=== PATIENT | female | born 1960 | race African-American/Black ===

== ENCOUNTER 2016-08-17 21:58 | Inpatient (IN) | payer MEDICARE, MEDICAID ==
[~2016-08-17] VITALS: Ht 165.1 cm; Wt 109.8 kg
[2016-08-17] MEDS ORDERED: NALOXONE 0.4 MG/ML VIAL. ONE (22:06)
--- NOTE | 2016-08-17 22:11 | ED.ADGEN ---
Adult General Chief Complaint Chief Complaint: ALTERED MENTAL STATUS HPI HPI Patient is a 55 year old female presents emergency department by EMS for altered mental status. Patient was found "face down" at her senior care. Initially, the patient was described as "unresponsive" and she certainly is uncooperative. She refuses to open her eyes but is seen multiple times making purposeful movements with her left side. Patient pushes away painful stimuli. She does carry a diagnosis of psychosis of unknown origin as well as a history of previous CVA with right-sided deficit. She has a history of substance abuse. She received Narcan prior to arrival with little effect. Review of Systems Review of Systems Constitutional: Denies fever or chills. [] Eyes: Denies change in visual acuity. [] HENT: Denies nasal congestion or sore throat. [] Respiratory: Denies cough or shortness of breath. [] Cardiovascular: Denies chest pain or edema. [] GI: Denies abdominal pain, nausea, vomiting, bloody stools or diarrhea. [] : Denies dysuria. [] Musculoskeletal: Denies back pain or joint pain. [] Integument: Denies rash. [] Neurologic: Denies headache, focal weakness or sensory changes. [] Endocrine: Denies polyuria or polydipsia. [] Lymphatic: Denies swollen glands. [] Psychiatric: Denies depression or anxiety. [] Current Medications Current Medications Current Medications Medications (Trade) Dose Ordered Sig/Charu Start Time Stop Time Status Last Admin Dose Admin Naloxone HCl (Narcan) 0.4 mg STK-MED ONCE 08/17/16 22:06 08/17/16 22:07 DC Sodium Chloride (Iv Sodium Chloride 0.9% 1000ml Bag) 1,000 ml @ 1,000 mls/hr 1X ONCE 08/17/16 22:15 08/17/16 23:14 Allergies Allergies Allergies Coded Allergies Type Severity Reaction Last Updated Verified codeine Allergy Intermediate 08/17/16 Yes Physical Exam Physical Exam Constitutional: Well developed, well nourished, no acute distress, non-toxic appearance. [] HENT: Normocephalic, atraumatic, bilateral external ears normal, oropharynx moist, no oral exudates, nose normal. [] Eyes: PERRLA, EOMI, 3 mm, conjunctiva normal, no discharge. [] Neck: Normal range of motion, no tenderness, supple, no stridor. [] Cardiovascular:Heart rate regular rhythm, no murmur [] Lungs & Thorax: Bilateral breath sounds clear to auscultation [] Abdomen: Bowel sounds normal, soft, no tenderness, no masses, no pulsatile masses. [] Skin: Warm, dry, no erythema, no rash. [] Back: No tenderness, no CVA tenderness. [] Extremities: No tenderness, no cyanosis, no clubbing, ROM intact, no edema. [] Neurologic: Alert and oriented X 3, does not move right extremities, normal sensory function [] Psychologic: Affect normal, judgement normal, mood normal. [] Current Patient Data Vital Signs Vital Signs Date Time Temp Pulse Resp B/P Pulse Ox O2 Delivery O2 Flow Rate FiO2 08/17/16 22:08 97.5 59 16 135/64 98 Room Air 97.5 Lab Values Laboratory Tests Test 08/17/16 22:13 White Blood Count 5.5x10^3/uL (4.0-11.0) Red Blood Count 4.46x10^6/uL (3.50-5.40) Hemoglobin 13.5g/dL (12.0-15.5) Hematocrit 41.7% (36.0-47.0) Mean Corpuscular Volume 94fL (79-100) Mean Corpuscular Hemoglobin 30pg (25-35) Mean Corpuscular Hemoglobin Concent 32g/dL (31-37) Red Cell Distribution Width 12.9% (11.5-14.5) Platelet Count 175x10^3/uL (140-400) Neutrophils (%) (Auto) 60% (31-73) Lymphocytes (%) (Auto) 31% (24-48) Monocytes (%) (Auto) 7% (0-9) Eosinophils (%) (Auto) 3% (0-3) Basophils (%) (Auto) 0% (0-3) Neutrophils # (Auto) 3.3x10^3uL (1.8-7.7) Lymphocytes # (Auto) 1.7x10^3/uL (1.0-4.8) Monocytes # (Auto) 0.4x10^3/uL (0.0-1.1) Eosinophils # (Auto) 0.1x10^3/uL (0.0-0.7) Basophils # (Auto) 0.0x10^3/uL (0.0-0.2) Sodium Level 138mmol/L (136-145) Potassium Level 4.2mmol/L (3.5-5.1) Chloride Level 106mmol/L (98-107) Carbon Dioxide Level 24mmol/L (21-32) Anion Gap 8 (6-14) Blood Urea Nitrogen 12mg/dL (7-20) Creatinine 1.1mg/dL (0.6-1.0) H Estimated GFR (Cockcroft-Gault) 62.6 Glucose Level 121mg/dL (70-99) H Calcium Level 9.2mg/dL (8.5-10.1) Troponin I Quantitative < 0.017ng/mL (0.000-0.055) Ethyl Alcohol Level < 10mg/dL (0-10) Laboratory Tests 08/17/16 22:13 Laboratory Tests 08/17/16 22:13 EKG EKG EKG interpreted by me, normal sinus rhythm, 59 beats for minute, leftward axis, no ST segment elevation. [] Radiology/Procedures Radiology/Procedures PROCEDURE CT head without contrast 08/17/2016. HISTORY Acute mental status change. History of prior CVA. TECHNIQUE Noncontrast images were performed. Exposure: One or more of the following individualized dose reduction techniques were utilized for this exam: 1. Automated exposure control. 2. Adjustment of the mA and/or kV according to patient size. 3. Use of iterative reconstruction technique. COMPARISON FINDINGS No intracranial hemorrhage or abnormal extra-axial fluid collection is seen. Areas of abnormal low density and volume loss in the left frontal region are consistent with previous ischemic injury. There also appears to be a chronic infarct in the left thalamus and probably some prior ischemic injury in the right frontal lobe. No acute infarct is seen. No mass is seen. There is no midline shift. The paranasal sinuses and mastoid air cells are clear. IMPRESSION Chronic ischemic changes. No identified acute abnormality. Electronically signed by: Hernandez Morales (Aug 17, 2016 22:42:58) DICTATED and SIGNED BY: HERNANDEZ MORALES Jr, MD DATE: 08/17/16 1355 CC: IRIS CUTLER MD; JOSÉ MIGUEL SANDERS ~[] Course & Med Decision Making Course & Med Decision Making Pertinent Labs and Imaging studies reviewed. (See chart for details) Patient will occasionally chuckled when she spoken to. Within an IV was started she tried to state that she "did not want that". [] Dragon Disclaimer Dragon Disclaimer This electronic medical record was generated, in whole or in part, using a voice recognition dictation system. IRIS CUTLER MD Aug 17, 2016 22:10
[2016-08-17] MEDS ORDERED: IV NORMAL SALINE 1000ML BAG 1,000 ML IV ONE (22:15)
[2016-08-17] MEDS ORDERED: NALOXONE 2 MG/2 ML DISP.SYRIN. IV ONE (22:15)
[2016-08-17 22:23] LABS: BASO % 0 % (0-3); EOS % 3 % (0-3); HEMATOCRIT 41.7 % (36.0-47.0); HEMOGLOBIN 13.5 g/dL (12.0-15.5); LYMPH # 1.7 x10^3/uL (1.0-4.8); LYMPH % 31 % (24-48); MEAN CORPUSCULAR HEMOGLOBIN 30 pg (25-35); MEAN CORPUSCULAR HGB CONC 32 g/dL (31-37); MEAN CORPUSCULAR VOLUME 94 fL (79-100); MONO % 7 % (0-9); NEUT % 60 % (31-73); PLATELET COUNT 175 x10^3/uL (140-400); RED BLOOD COUNT 4.46 x10^6/uL (3.50-5.40); RED CELL DISTRIBUTION WIDTH 12.9 % (11.5-14.5); WHITE BLOOD COUNT 5.5 x10^3/uL (4.0-11.0)
[2016-08-17 22:38] LABS: CALCIUM 9.2 mg/dL (8.5-10.1); CREATININE 1.1 mg/dL (0.6-1.0); GFR 62.6; POTASSIUM 4.2 mmol/L (3.5-5.1)
--- NOTE | 2016-08-17 22:44 | RAD ---
PROCEDURE CT head without contrast 08/17/2016. HISTORY Acute mental status change. History of prior CVA. TECHNIQUE Noncontrast images were performed. Exposure: One or more of the following individualized dose reduction techniques were utilized for this exam: 1. Automated exposure control. 2. Adjustment of the mA and/or kV according to patient size. 3. Use of iterative reconstruction technique. COMPARISON FINDINGS No intracranial hemorrhage or abnormal extra-axial fluid collection is seen. Areas of abnormal low density and volume loss in the left frontal region are consistent with previous ischemic injury. There also appears to be a chronic infarct in the left thalamus and probably some prior ischemic injury in the right frontal lobe. No acute infarct is seen. No mass is seen. There is no midline shift. The paranasal sinuses and mastoid air cells are clear. IMPRESSION Chronic ischemic changes. No identified acute abnormality. Electronically signed by: Albert Gutierrez (Aug 17, 2016 22:42:58)
[2016-08-17 23:01] LABS: BILIRUBIN,URINE SMALL (NEG); GLUCOSE,URINE NEGATIVE (NEG); NITRITE,URINE NEGATIVE (NEG); PROTEIN,URINE 30 mg/dL (NEG-TRACE)
[2016-08-17 23:07] LABS: BACTERIA,URINE 0 /HPF (0-FEW); RBC,URINE OCC /HPF (0-2); SQUAMOUS EPITHELIAL CELL,UR FEW /LPF; WBC,URINE OCC /HPF (0-4)
[2016-08-17 23:09] LABS: BARBITURATES NEG (NEG); BENZODIAZEPINES NEG (NEG); CANNABINOIDS NEG (NEG); COCAINE NEG (NEG); METHADONE NEG (NEG); OPIATES NEG (NEG); PHENCYCLIDINE NEG (NEG)
[2016-08-17 23:24] LABS: ETHANOL, URINE NEG (NEG)
[2016-08-18] VITALS (7 sets, daily range): BP systolic 118–168; BP diastolic 56–79
--- NOTE | 2016-08-18 00:24 | ACF ---
Admission Forms Criteria MENTAL STATUS CHANGE Clinical Indications for Inpatient Care (Place 'X' for any and all applicable criteria): Ongoing inpatient care may be needed for 1 or more of the following(1)(2)(3)(5)( 6): [X]I. Suspected serious etiology (eg, medical disorder, MOTION GRAPHICS DESIGNER event) of altered mental status [ ]II. Danger to self or others not manageable at lower level of care [ ]III. Grave disability (eg, inability to perform self care necessary at lower level of care) [ ]IV. Agitation or inappropriate behavior interfering with care for primary condition (eg, attempting to discontinue lines or drains prematurely, unable to cooperate with respiratory care) [ ]V. Delirium [A] [D][E] as described by 1 or more of the following(26): [ ]a) Delirium due to alcohol or sedative [F] withdrawal [ ]b) Delirium of uncertain etiology that has not responded to appropriate empiric treatment [ ]c) Delirium that prevents performance of a life-sustaining function (eg, feeding or hydrating oneself) [ ]. General contraindications and/or Inappropriate clinical situations for Observational Care in patients with Mental Status Change, when ANY ONE of the following is required: [ ]a) Prediction of prolongation of LOS based on ANY ONE of the following may be considered as a contraindication for observational care 2, 3, 4, 5, 6, 7, 8, 9, 10, 11 [ ]i) Age > 65 yrs. [ ]ii) Patient arriving by ambulance [ ]iii) Patient with high acuity [ ]iv) Patient requiring vital sign monitoring [ ]v) Patient on IV medication [ ]b) Systolic blood pressures greater than or equal to 180mmHg 3, 12 [ ]c) Patient with altered mental status including delirium and other alteration of consciousness, (3) [ ]d) Patient whose discharge disposition will be to a usp home or rehabilitation home should not be managed in Emergency Department Observation Unit. CMS rule requires 3 days hospital stay before such placement.3,13 [ ]e) Patient with failure to thrive due to broad array of etiologies 3,16,17 [ ]f) Inability to ambulate 3,14 Extended stay beyond goal length of stay for the primary condition may be needed until ALL of the following are present(3)(5): [ ]a) Underlying medical etiology of mental status change is absent, or has been established and adequately treated [ ]b) Danger to self or others is absent or manageable at lower level of care. [ ]c) Behavior crisis management, including physical or chemical restraints, is not required or available at lower level of car [ ]d) Substance or alcohol withdrawal is absent or manageable at lower level of care. [ ]e) Behavioral symptoms (eg, agitation, somnolence, inappropriate behavior) are absent, or are manageable at lower level of care. The original [facility] [employer] content created by [facility] has been revised. The portions of the content which have been revised are identified through the use of italic text or in bold, and [facility] has neither reviewed nor approved the modified material. All other unmodified content is copyright [facility]. Please see references footnoted in the original [facility] edition 2016 Admission Criteria Met?: Yes IMER STEVE Aug 18, 2016 00:24
[2016-08-18] MEDS: IV NORMAL SALINE 1000ML BAG 1,000 ML IV SCH ×3 (00:56→16:30)
[2016-08-18] MEDS ORDERED: AMLO10TA2 PO (04:09)
[2016-08-18] MEDS ORDERED: MAGN400O4 PO (04:09)
[2016-08-18] MEDS ORDERED: ASPI1CPM PO (04:09)
[2016-08-18] MEDS ORDERED: CALC500T13 PO (04:09)
[2016-08-18] MEDS ORDERED: POTA20TA84 PO (04:09)
[2016-08-18] MEDS ORDERED: CHOL2000 PO (04:09)
[2016-08-18] MEDS ORDERED: METO50TA2 PO (04:09)
[2016-08-18] MEDS ORDERED: RISP0.2519 PO (04:09)
[2016-08-18] MEDS ORDERED: NYST1POW2 PO (04:09)
[2016-08-18] MEDS ORDERED: ATOR40TA PO (04:09)
[2016-08-18] MEDS ORDERED: ACET325T9 PO (04:09)
[2016-08-18] MEDS ORDERED: ACETAMINOPHEN 325 MG TABLET. PO PRN (09:00)
[2016-08-18] MEDS ORDERED: METOPROLOL TART IMMED RELEASE 50 MG TABLET. PO SCH (09:00)
[2016-08-18] MEDS ORDERED: MAGNESIUM HYDROXIDE 2,400 MG/30 ML ORAL.SUSP. PO PRN (09:00)
[2016-08-18] MEDS: AMLODIPINE BESYLATE 10 MG TABLET. PO SCH (09:00)
[2016-08-18] MEDS: CHOLECALCIFEROL (VITAMIN D3) 1,000 UNIT TABLET PO SCH (10:25)
[2016-08-18] MEDS: CALCIUM CARBONATE 500 MG TABLET PO SCH ×3 (10:26→21:33)
[2016-08-18] MEDS: ASPIRIN/DIPYRIDAMOLE 200/25MG CAP.ER.12H. PO SCH ×2 (10:26→21:33)
[2016-08-18] MEDS: NYSTATIN TOPICAL POWDER 15GM BOTTLE. TP SCH ×2 (10:27→21:34)
--- NOTE | 2016-08-18 11:32 | PDOC1 ---
History and Physical Date of Admission Date of Admission DATE: 08/18/16 TIME: 11:23 Identification/Chief Complaint Chief Complaint fall in [facility] Source Source: Caregiver, Chart review History of Present Illness History of Present Illness 55 y/o AA female, SNU resident -she is a poor historian, slurred in speech - maybe baseline? hx of CVA with R residual, hx psychosis per chart (no family at bedside to verify) was found face down in SNU, Other details scant. CT heat, CXR and UA neg for acute pathology or infection. PEr RN thoughs he morales down to 30s while sleeping, Rest is ok SHe is flexed on her R UE, but able to attempt lift of her R LE - neuro consulted at ER level ER gave narcan - minimal response (no effect) Past Medical History CENTRAL NERVOUS SYSTEM: CVA Past Surgical History Past Surgical History: Other (unknown) Family History Family History: Family History Unknown Social History Smoke: No ALCOHOL: none Drugs: None Current Problem List Problem List Problems Medical Problems: (1) Altered mental status, unspecified Status: Acute (2) H/O: CVA (cerebrovascular accident) Status: Acute Problems: Current Medications Current Medications Current Medications Sodium Chloride (Iv Sodium Chloride 0.9% 1000ml Bag) 1,000 ml @ 1,000 mls/hr 1X ONCE IV Last administered on 08/17/16 22:15; Start 08/17/16 at 22:15; Stop 08/17/16 at 23:14; Status DC Naloxone HCl (Narcan) 1 mg 1X ONCE IV Last administered on 08/17/16 22:11; Start 08/17/16 at 22:15; Stop 08/17/16 at 22:16; Status DC Naloxone HCl 0.4 mg 0.4 mg STK-MED ONCE .ROUTE ; Start 08/17/16 at 22:06; Stop at 22:07; Status DC Sodium Chloride (Iv Sodium Chloride 0.9% 1000ml Bag) 1,000 ml @ 100 mls/hr Q10H IV Last administered on 08/18/16 00:56; Start 08/17/16 at 23:15; Stop at 23:14 Acetaminophen (Tylenol) 650 mg PRN Q6HRS PRN PO PAIN; Start 08/18/16 at 09:00 Amlodipine Besylate (Norvasc) 10 mg DAILY PO ; Start 08/18/16 at 09:00 Dipyridamole/ Aspirin (Aggrenox) 1 cap BID PO Last administered on 08/18/16 10: 26; Start 08/18/16 at 09:00 Atorvastatin Calcium (Lipitor) 40 mg QHS PO ; Start 08/18/16 at 21:00 Calcium Carbonate/ Glycine (Oscal) 500 mg TID PO Last administered on 08/18/16 10:26; Start 08/18/16 at 09:00 Magnesium Hydroxide (Milk Of Magnesia) 400 mg DAILY PRN PO CONSTIPATION; Start 08/18/16 at 09:00 Metoprolol Tartrate (Lopressor) 50 mg DAILY PO ; Start 08/18/16 at 09:00 Risperidone (Risperdal) 0.25 mg QHS PO ; Start 08/18/16 at 21:00 Vitamin D (Vitamin D3) 1,000 unit DAILY PO Last administered on 08/18/16 10:25 ; Start 08/18/16 at 09:00 Potassium Chloride (Klor-Con) 20 meq QHS PO ; Start 08/18/16 at 21:00 Nystatin (Nystop) 1 carlos BID TP Last administered on 08/18/16 10:27; Start at 09:00 Active Scripts Active Reported Risperdal (Risperidone) 0.25 Mg Tablet 1 Tab PO QHS K-Tab ER (Potassium Chloride) 20 Meq Tablet.er 20 Meq PO HS Oyster Shell Calcium (Calcium Carbonate) 500 Mg Tablet 500 Mg PO TID Nystatin 1 Each Powder.ea. 1 Each PO PRN Milk Of Magnesia (Magnesium Hydroxide) 400 Mg/5 Ml Oral.susp 400 Mg PO PRN Metoprolol Tartrate 50 Mg Tablet 1 Tab PO DAILY Vitamin D (Cholecalciferol (Vitamin D3)) 2,000 Unit Capsule 1 Cap PO DAILY Lipitor (Atorvastatin Calcium) 40 Mg Tablet 1 Tab PO QHS Amlodipine Besylate 10 Mg Tablet 10 Mg PO DAILY Aggrenox 25 Mg-200 Mg Capsule (Aspirin/Dipyridamole) 1 Each Cpmp.12hr 1 Cap PO BID Tylenol (Acetaminophen) 325 Mg Tablet 650 Mg PO PRN Q6HRS PRN Allergies Allergies: Coded Allergies: codeine (Verified Allergy, Intermediate, 4/8/17) ROS Review of System limited - minimally verbal Physical Exam General: Cooperative, No acute distress HEENT: Atraumatic, PERRLA, EOMI Lungs: Clear to auscultation, Normal air movement Heart: S1S2, RRR, no thrills, no rubs, no gallops Cardiovascular: S1, S2 Breasts: Normal Abdomen: Normal bowel sounds, Soft, No tenderness, No hepatosplenomegaly, No masses Rectal Exam: not examined Skin: No rashes, No breakdown, No significant lesion Neuro: Other (slurred speech, felxed R UE, MMT 4/5 on left, 2-3/5 RLE, flexed/ contracture on R UE?) Vitals Vitals Vital Signs Date Time Temp Pulse Resp B/P Pulse Ox O2 Delivery O2 Flow Rate FiO2 08/18/16 09:00 55 08/18/16 08:00 Room Air 08/18/16 07:00 97.5 18 118/58 98 97.5 Labs Labs Laboratory Tests Test 08/17/16 22:13 08/17/16 22:55 White Blood Count 5.5x10^3/uL (4.0-11.0) Red Blood Count 4.46x10^6/uL (3.50-5.40) Hemoglobin 13.5g/dL (12.0-15.5) Hematocrit 41.7% (36.0-47.0) Mean Corpuscular Volume 94fL (79-100) Mean Corpuscular Hemoglobin 30pg (25-35) Mean Corpuscular Hemoglobin Concent 32g/dL (31-37) Red Cell Distribution Width 12.9% (11.5-14.5) Platelet Count 175x10^3/uL (140-400) Neutrophils (%) (Auto) 60% (31-73) Lymphocytes (%) (Auto) 31% (24-48) Monocytes (%) (Auto) 7% (0-9) Eosinophils (%) (Auto) 3% (0-3) Basophils (%) (Auto) 0% (0-3) Neutrophils # (Auto) 3.3x10^3uL (1.8-7.7) Lymphocytes # (Auto) 1.7x10^3/uL (1.0-4.8) Monocytes # (Auto) 0.4x10^3/uL (0.0-1.1) Eosinophils # (Auto) 0.1x10^3/uL (0.0-0.7) Basophils # (Auto) 0.0x10^3/uL (0.0-0.2) Sodium Level 138mmol/L (136-145) Potassium Level 4.2mmol/L (3.5-5.1) Chloride Level 106mmol/L (98-107) Carbon Dioxide Level 24mmol/L (21-32) Anion Gap 8 (6-14) Blood Urea Nitrogen 12mg/dL (7-20) Creatinine 1.1mg/dL (0.6-1.0) Estimated GFR (Cockcroft-Gault) 62.6 Glucose Level 121mg/dL (70-99) Calcium Level 9.2mg/dL (8.5-10.1) Troponin I Quantitative < 0.017ng/mL (0.000-0.055) Ethyl Alcohol Level < 10mg/dL (0-10) Urine Collection Type U cath Urine Color Lotus Urine Clarity Turbid Urine pH 5.0 Urine Specific Jachin >=1.030 Urine Protein 30mg/dL (NEG-TRACE) Urine Glucose (UA) Negativemg/dL (NEG) Urine Ketones (Stick) Negativemg/dL (NEG) Urine Blood Negative (NEG) Urine Nitrite Negative (NEG) Urine Bilirubin Small (NEG) Urine Urobilinogen Dipstick 1.0mg/dL (0.2 mg/dL) Urine Leukocyte Esterase Negative (NEG) Urine RBC Occ/HPF (0-2) Urine WBC Occ/HPF (0-4) Urine Squamous Epithelial Cells Few/LPF Urine Bacteria 0/HPF (0-FEW) Urine Hyaline Casts Moderate/HPF Urine Mucus Marked/LPF Urine Opiates Screen Neg (NEG) Urine Methadone Screen Neg (NEG) Urine Barbiturates Neg (NEG) Urine Phencyclidine Screen Neg (NEG) Urine Amphetamine/Methamphetamine Neg (NEG) Urine Benzodiazepines Screen Neg (NEG) Urine Cocaine Screen Neg (NEG) Urine Cannabinoids Screen Neg (NEG) Urine Ethyl Alcohol Neg (NEG) Laboratory Tests Test 08/17/16 22:13 08/17/16 22:55 White Blood Count 5.5x10^3/uL (4.0-11.0) Red Blood Count 4.46x10^6/uL (3.50-5.40) Hemoglobin 13.5g/dL (12.0-15.5) Hematocrit 41.7% (36.0-47.0) Mean Corpuscular Volume 94fL (79-100) Mean Corpuscular Hemoglobin 30pg (25-35) Mean Corpuscular Hemoglobin Concent 32g/dL (31-37) Red Cell Distribution Width 12.9% (11.5-14.5) Platelet Count 175x10^3/uL (140-400) Neutrophils (%) (Auto) 60% (31-73) Lymphocytes (%) (Auto) 31% (24-48) Monocytes (%) (Auto) 7% (0-9) Eosinophils (%) (Auto) 3% (0-3) Basophils (%) (Auto) 0% (0-3) Neutrophils # (Auto) 3.3x10^3uL (1.8-7.7) Lymphocytes # (Auto) 1.7x10^3/uL (1.0-4.8) Monocytes # (Auto) 0.4x10^3/uL (0.0-1.1) Eosinophils # (Auto) 0.1x10^3/uL (0.0-0.7) Basophils # (Auto) 0.0x10^3/uL (0.0-0.2) Sodium Level 138mmol/L (136-145) Potassium Level 4.2mmol/L (3.5-5.1) Chloride Level 106mmol/L (98-107) Carbon Dioxide Level 24mmol/L (21-32) Anion Gap 8 (6-14) Blood Urea Nitrogen 12mg/dL (7-20) Creatinine 1.1mg/dL (0.6-1.0) Estimated GFR (Cockcroft-Gault) 62.6 Glucose Level 121mg/dL (70-99) Calcium Level 9.2mg/dL (8.5-10.1) Troponin I Quantitative < 0.017ng/mL (0.000-0.055) Ethyl Alcohol Level < 10mg/dL (0-10) Urine Collection Type U cath Urine Color Lotus Urine Clarity Turbid Urine pH 5.0 Urine Specific Jachin >=1.030 Urine Protein 30mg/dL (NEG-TRACE) Urine Glucose (UA) Negativemg/dL (NEG) Urine Ketones (Stick) Negativemg/dL (NEG) Urine Blood Negative (NEG) Urine Nitrite Negative (NEG) Urine Bilirubin Small (NEG) Urine Urobilinogen Dipstick 1.0mg/dL (0.2 mg/dL) Urine Leukocyte Esterase Negative (NEG) Urine RBC Occ/HPF (0-2) Urine WBC Occ/HPF (0-4) Urine Squamous Epithelial Cells Few/LPF Urine Bacteria 0/HPF (0-FEW) Urine Hyaline Casts Moderate/HPF Urine Mucus Marked/LPF Urine Opiates Screen Neg (NEG) Urine Methadone Screen Neg (NEG) Urine Barbiturates Neg (NEG) Urine Phencyclidine Screen Neg (NEG) Urine Amphetamine/Methamphetamine Neg (NEG) Urine Benzodiazepines Screen Neg (NEG) Urine Cocaine Screen Neg (NEG) Urine Cannabinoids Screen Neg (NEG) Urine Ethyl Alcohol Neg (NEG) VTE Prophylaxis Ordered VTE Prophylaxis Devices: Yes VTE Pharmacological Prophylaxi: Yes Assessment/Plan Assessment/Plan 1. FAll in SNU 2. NOn injury FAll 3. Hx CVA with R residual weakness 4. hx psychosis per chart 5. Obesity 6. Bradycardia while sleeping (30s) PLAn: Keep CVC Keep TELE Monitor bradycardia Can consult cards PT/OT MANAGER ICU eval Ask what diet what she is on in SNU - claims reg diet and can feed herself DVT prophy HOme meds resumed RENE PIERCE MD Aug 18, 2016 11:32
[2016-08-18] MEDS ORDERED: ENOXAPARIN 40 MG/0.4 ML SYRINGE. SQ SCH (12:00)
--- NOTE | 2016-08-18 12:46 | EKG ---
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
--- NOTE | 2016-08-18 15:17 | PDOC2 ---
NEUROLOGY CONSULT Date of Admission Date of Admission DATE: 08/18/16 TIME: 15:11 Reason for Consult Reason for Consult: Unresponsive at longterm Referring Physician Referring Physician: Dr. Pollard Source Source: Chart review History of Present Illness History of Present Illness The patient is a 55-year-old right-handed female with history of stroke and psychosis found down at the longterm unresponsive. She apparently is back to her baseline now. No further history is obtainable. Past Medical History Cardiovascular: HTN, Hyperlipidemia CENTRAL NERVOUS SYSTEM: CVA Psych: Depression, Psychosis Renal/: UTI Past Surgical History Past Surgical History: No pertinent history Family History Family History: No pertinent hx Social History Social History She denies tobacco or alcohol as best I can tell Current Medications Current Medications Current Medications Sodium Chloride (Iv Sodium Chloride 0.9% 1000ml Bag) 1,000 ml @ 1,000 mls/hr 1X ONCE IV Last administered on 08/17/16 22:15; Start 08/17/16 at 22:15; Stop 08/17/16 at 23:14; Status DC Naloxone HCl (Narcan) 1 mg 1X ONCE IV Last administered on 08/17/16 22:11; Start 08/17/16 at 22:15; Stop 08/17/16 at 22:16; Status DC Naloxone HCl 0.4 mg 0.4 mg STK-MED ONCE .ROUTE ; Start 08/17/16 at 22:06; Stop at 22:07; Status DC Sodium Chloride (Iv Sodium Chloride 0.9% 1000ml Bag) 1,000 ml @ 100 mls/hr Q10H IV Last administered on 08/18/16 00:56; Start 08/17/16 at 23:15; Stop at 23:14 Acetaminophen (Tylenol) 650 mg PRN Q6HRS PRN PO PAIN; Start 08/18/16 at 09:00 Amlodipine Besylate (Norvasc) 10 mg DAILY PO ; Start 08/18/16 at 09:00 Dipyridamole/ Aspirin (Aggrenox) 1 cap BID PO Last administered on 08/18/16 10: 26; Start 08/18/16 at 09:00 Atorvastatin Calcium (Lipitor) 40 mg QHS PO ; Start 08/18/16 at 21:00 Calcium Carbonate/ Glycine (Oscal) 500 mg TID PO Last administered on 08/18/16 10:26; Start 08/18/16 at 09:00 Magnesium Hydroxide (Milk Of Magnesia) 400 mg DAILY PRN PO CONSTIPATION; Start 08/18/16 at 09:00 Metoprolol Tartrate (Lopressor) 50 mg DAILY PO ; Start 08/18/16 at 09:00 Risperidone (Risperdal) 0.25 mg QHS PO ; Start 08/18/16 at 21:00 Vitamin D (Vitamin D3) 1,000 unit DAILY PO Last administered on 08/18/16 10:25 ; Start 08/18/16 at 09:00 Potassium Chloride (Klor-Con) 20 meq QHS PO ; Start 08/18/16 at 21:00 Nystatin (Nystop) 1 carlos BID TP Last administered on 08/18/16 10:27; Start at 09:00 Enoxaparin Sodium (Lovenox 40mg Syringe) 40 mg Q24H SQ Last administered on 08/18 12:23; Start 08/18/16 at 12:00 Active Scripts Active Reported Risperdal (Risperidone) 0.25 Mg Tablet 1 Tab PO QHS K-Tab ER (Potassium Chloride) 20 Meq Tablet.er 20 Meq PO HS Oyster Shell Calcium (Calcium Carbonate) 500 Mg Tablet 500 Mg PO TID Nystatin 1 Each Powder.ea. 1 Each PO PRN Milk Of Magnesia (Magnesium Hydroxide) 400 Mg/5 Ml Oral.susp 400 Mg PO PRN Metoprolol Tartrate 50 Mg Tablet 1 Tab PO DAILY Vitamin D (Cholecalciferol (Vitamin D3)) 2,000 Unit Capsule 1 Cap PO DAILY Lipitor (Atorvastatin Calcium) 40 Mg Tablet 1 Tab PO QHS Amlodipine Besylate 10 Mg Tablet 10 Mg PO DAILY Aggrenox 25 Mg-200 Mg Capsule (Aspirin/Dipyridamole) 1 Each Cpmp.12hr 1 Cap PO BID Tylenol (Acetaminophen) 325 Mg Tablet 650 Mg PO PRN Q6HRS PRN Allergies Allergies: Coded Allergies: codeine (Verified Allergy, Intermediate, 08/17/16) ROS Review of System Not reliably obtained Physical Exam Physical Examination PHYSICAL EXAMINATION: Vital signs: see above. General appearance is normal and in no acute distress. HEENT: Normocephalic and nontraumatic. Eyes, nose, ears, and throat are unremarkable. Neck is supple. No lymphadenopathy. No bruits are heard over the carotid artery. No crepitus. NEUROLOGIC: She is alert, follows a few commands, speech is mostly gibberish. She cannot name or repeat. Cranial nerve examination reveals full visual mitchell to threat. There is a slight right central facial weakness. Reflexes are 1+ with silent plantar responses. There is mild spastic right hemiparesis at 4/5. She does not cooperate with tests of coordination or sensation. Vitals VITALS Vital Signs Date Time Temp Pulse Resp B/P Pulse Ox O2 Delivery O2 Flow Rate FiO2 08/18/16 11:26 97.2 64 17 168/74 98 Room Air 97.2 Labs Labs Laboratory Tests Test 08/17/16 22:13 08/17/16 22:55 08/18/16 01:00 White Blood Count 5.5x10^3/uL (4.0-11.0) Red Blood Count 4.46x10^6/uL (3.50-5.40) Hemoglobin 13.5g/dL (12.0-15.5) Hematocrit 41.7% (36.0-47.0) Mean Corpuscular Volume 94fL (79-100) Mean Corpuscular Hemoglobin 30pg (25-35) Mean Corpuscular Hemoglobin Concent 32g/dL (31-37) Red Cell Distribution Width 12.9% (11.5-14.5) Platelet Count 175x10^3/uL (140-400) Neutrophils (%) (Auto) 60% (31-73) Lymphocytes (%) (Auto) 31% (24-48) Monocytes (%) (Auto) 7% (0-9) Eosinophils (%) (Auto) 3% (0-3) Basophils (%) (Auto) 0% (0-3) Neutrophils # (Auto) 3.3x10^3uL (1.8-7.7) Lymphocytes # (Auto) 1.7x10^3/uL (1.0-4.8) Monocytes # (Auto) 0.4x10^3/uL (0.0-1.1) Eosinophils # (Auto) 0.1x10^3/uL (0.0-0.7) Basophils # (Auto) 0.0x10^3/uL (0.0-0.2) Sodium Level 138mmol/L (136-145) Potassium Level 4.2mmol/L (3.5-5.1) Chloride Level 106mmol/L (98-107) Carbon Dioxide Level 24mmol/L (21-32) Anion Gap 8 (6-14) Blood Urea Nitrogen 12mg/dL (7-20) Creatinine 1.1mg/dL (0.6-1.0) Estimated GFR (Cockcroft-Gault) 62.6 Glucose Level 121mg/dL (70-99) Calcium Level 9.2mg/dL (8.5-10.1) Troponin I Quantitative < 0.017ng/mL (0.000-0.055) Ethyl Alcohol Level < 10mg/dL (0-10) Urine Collection Type U cath Urine Color Lotus Urine Clarity Turbid Urine pH 5.0 Urine Specific [place] >=1.030 Urine Protein 30mg/dL (NEG-TRACE) Urine Glucose (UA) Negativemg/dL (NEG) Urine Ketones (Stick) Negativemg/dL (NEG) Urine Blood Negative (NEG) Urine Nitrite Negative (NEG) Urine Bilirubin Small (NEG) Urine Urobilinogen Dipstick 1.0mg/dL (0.2 mg/dL) Urine Leukocyte Esterase Negative (NEG) Urine RBC Occ/HPF (0-2) Urine WBC Occ/HPF (0-4) Urine Squamous Epithelial Cells Few/LPF Urine Bacteria 0/HPF (0-FEW) Urine Hyaline Casts Moderate/HPF Urine Mucus Marked/LPF Urine Opiates Screen Neg (NEG) Urine Methadone Screen Neg (NEG) Urine Barbiturates Neg (NEG) Urine Phencyclidine Screen Neg (NEG) Urine Amphetamine/Methamphetamine Neg (NEG) Urine Benzodiazepines Screen Neg (NEG) Urine Cocaine Screen Neg (NEG) Urine Cannabinoids Screen Neg (NEG) Urine Ethyl Alcohol Neg (NEG) Nasal Screen MRSA (PCR) Negative (Negative) Laboratory Tests Test 08/17/16 22:13 08/17/16 22:55 08/18/16 01:00 White Blood Count 5.5x10^3/uL (4.0-11.0) Red Blood Count 4.46x10^6/uL (3.50-5.40) Hemoglobin 13.5g/dL (12.0-15.5) Hematocrit 41.7% (36.0-47.0) Mean Corpuscular Volume 94fL (79-100) Mean Corpuscular Hemoglobin 30pg (25-35) Mean Corpuscular Hemoglobin Concent 32g/dL (31-37) Red Cell Distribution Width 12.9% (11.5-14.5) Platelet Count 175x10^3/uL (140-400) Neutrophils (%) (Auto) 60% (31-73) Lymphocytes (%) (Auto) 31% (24-48) Monocytes (%) (Auto) 7% (0-9) Eosinophils (%) (Auto) 3% (0-3) Basophils (%) (Auto) 0% (0-3) Neutrophils # (Auto) 3.3x10^3uL (1.8-7.7) Lymphocytes # (Auto) 1.7x10^3/uL (1.0-4.8) Monocytes # (Auto) 0.4x10^3/uL (0.0-1.1) Eosinophils # (Auto) 0.1x10^3/uL (0.0-0.7) Basophils # (Auto) 0.0x10^3/uL (0.0-0.2) Sodium Level 138mmol/L (136-145) Potassium Level 4.2mmol/L (3.5-5.1) Chloride Level 106mmol/L (98-107) Carbon Dioxide Level 24mmol/L (21-32) Anion Gap 8 (6-14) Blood Urea Nitrogen 12mg/dL (7-20) Creatinine 1.1mg/dL (0.6-1.0) Estimated GFR (Cockcroft-Gault) 62.6 Glucose Level 121mg/dL (70-99) Calcium Level 9.2mg/dL (8.5-10.1) Troponin I Quantitative < 0.017ng/mL (0.000-0.055) Ethyl Alcohol Level < 10mg/dL (0-10) Urine Collection Type U cath Urine Color Lotus Urine Clarity Turbid Urine pH 5.0 Urine Specific [place] >=1.030 Urine Protein 30mg/dL (NEG-TRACE) Urine Glucose (UA) Negativemg/dL (NEG) Urine Ketones (Stick) Negativemg/dL (NEG) Urine Blood Negative (NEG) Urine Nitrite Negative (NEG) Urine Bilirubin Small (NEG) Urine Urobilinogen Dipstick 1.0mg/dL (0.2 mg/dL) Urine Leukocyte Esterase Negative (NEG) Urine RBC Occ/HPF (0-2) Urine WBC Occ/HPF (0-4) Urine Squamous Epithelial Cells Few/LPF Urine Bacteria 0/HPF (0-FEW) Urine Hyaline Casts Moderate/HPF Urine Mucus Marked/LPF Urine Opiates Screen Neg (NEG) Urine Methadone Screen Neg (NEG) Urine Barbiturates Neg (NEG) Urine Phencyclidine Screen Neg (NEG) Urine Amphetamine/Methamphetamine Neg (NEG) Urine Benzodiazepines Screen Neg (NEG) Urine Cocaine Screen Neg (NEG) Urine Cannabinoids Screen Neg (NEG) Urine Ethyl Alcohol Neg (NEG) Nasal Screen MRSA (PCR) Negative (Negative) Images Images Head CT: No intracranial hemorrhage or abnormal extra-axial fluid collection is seen. Areas of abnormal low density and volume loss in the left frontal region are consistent with previous ischemic injury. There also appears to be a chronic infarct in the left thalamus and probably some prior ischemic injury in the right frontal lobe. No acute infarct is seen. No mass is seen. There is no midline shift. The paranasal sinuses and mastoid air cells are clear. IMPRESSION Chronic ischemic changes. No identified acute abnormality. Assessment/Plan Assessment/Plan Impression: Unresponsive episode in a patient with prior stroke, psychosis, but without evidence of major metabolic derangement or toxicity on urine drug screen. I suppose she may have had a seizure. This may be psychogenic unresponsiveness as well. Note that she did have bradycardia and cardiology is consulted. Recommendations: I doubt that she would cooperate with an MRI I will check an EEG Observe and discharged back to longterm as soon as tomorrow if workup negative. Thank you for letting me help with the patient's care. GENARO RAWLS MD Aug 18, 2016 15:17
--- NOTE | 2016-08-18 18:22 | PDOC ---
Provider Note Provider Note Covering for for Dr. Araya. Patient is a very poor historian and not much information could be obtained. He was on the floor and was found to be bradycardic while asleep at 39 bpm. She has been on metoprolol and this was held. At present the heart rate is 50 bpm. She is awake and alert However not able to any history and not oriented. Dr. Araya returns tomorrow. LUDWIN CARDOSO MD Aug 18, 2016 18:22
[2016-08-18] MEDS: ATORVASTATIN CALCIUM 40 MG TABLET. PO SCH (21:33)
[2016-08-18] MEDS: ENOXAPARIN 40 MG/0.4 ML SYRINGE. SQ SCH (21:33)
[2016-08-18] MEDS: risperiDONE 0.25 MG TABLET. PO SCH (21:33)
[2016-08-18] MEDS: POTASSIUM CHLORIDE 20 MEQ TABLET.ER. PO SCH (21:34)
[2016-08-19 03:00] VITALS: BP 139/60
[2016-08-19 07:57] VITALS: BP 139/51
[2016-08-19] MEDS: ASPIRIN/DIPYRIDAMOLE 200/25MG CAP.ER.12H. PO SCH ×2 (08:28→20:49)
[2016-08-19] MEDS: CALCIUM CARBONATE 500 MG TABLET PO SCH ×3 (08:28→20:49)
[2016-08-19] MEDS: AMLODIPINE BESYLATE 10 MG TABLET. PO SCH (08:29)
[2016-08-19] MEDS: CHOLECALCIFEROL (VITAMIN D3) 1,000 UNIT TABLET PO SCH (08:29)
[2016-08-19 11:55] VITALS: BP 132/46
--- NOTE | 2016-08-19 12:29 | PDOC ---
PROGRESS NOTES Subjective Subjective Pt is a poor historian. No complaints. Nursing did not report any issues. Objective Objective Vital Signs Date Time Temp Pulse Resp B/P Pulse Ox O2 Delivery O2 Flow Rate FiO2 08/19/16 11:55 97.9 66 20 132/46 97 Room Air 97.9 Intake and Output 08/19/16 06:59 Intake Total 1760 ml Output Total 300 ml Balance 1460 ml Intake Oral 760 ml IV Total 1000 ml Output Urine Total 300 ml # Voids 6 Physical Exam Abdomen: Normal bowel sounds, Soft, No tenderness Heart: Regular rate, Normal S1, Normal S2 Extremities: No clubbing, No edema General: Alert, Other (slurred speech present) HEENT: Atraumatic Lungs: Clear to auscultation Assessment Assessment Problems Medical Problems: (1) Altered mental status, unspecified Status: Acute (2) H/O: CVA (cerebrovascular accident) Status: Acute - Bradycardia while sleeping (30s) - non injury fall in SNU - hx of cva with R residual weakness Plan Plan of Care - Pt is suppose to have an EEG done today. - Will order an Echo to evaluate pt's heart - Spoke with nurse at her facility. Per nurse pt's baseline is she is able to dress her self and participate in activities. - From a cardiology standpoint, Ok with discharge when primary team says ok Thank you for your consultation! Comment Review of Relevant I have reviewed the following items sue (where applicable) has been applied. Labs Laboratory Tests Test 08/17/16 22:13 08/17/16 22:55 08/18/16 01:00 White Blood Count 5.5x10^3/uL (4.0-11.0) Red Blood Count 4.46x10^6/uL (3.50-5.40) Hemoglobin 13.5g/dL (12.0-15.5) Hematocrit 41.7% (36.0-47.0) Mean Corpuscular Volume 94fL (79-100) Mean Corpuscular Hemoglobin 30pg (25-35) Mean Corpuscular Hemoglobin Concent 32g/dL (31-37) Red Cell Distribution Width 12.9% (11.5-14.5) Platelet Count 175x10^3/uL (140-400) Neutrophils (%) (Auto) 60% (31-73) Lymphocytes (%) (Auto) 31% (24-48) Monocytes (%) (Auto) 7% (0-9) Eosinophils (%) (Auto) 3% (0-3) Basophils (%) (Auto) 0% (0-3) Neutrophils # (Auto) 3.3x10^3uL (1.8-7.7) Lymphocytes # (Auto) 1.7x10^3/uL (1.0-4.8) Monocytes # (Auto) 0.4x10^3/uL (0.0-1.1) Eosinophils # (Auto) 0.1x10^3/uL (0.0-0.7) Basophils # (Auto) 0.0x10^3/uL (0.0-0.2) Sodium Level 138mmol/L (136-145) Potassium Level 4.2mmol/L (3.5-5.1) Chloride Level 106mmol/L (98-107) Carbon Dioxide Level 24mmol/L (21-32) Anion Gap 8 (6-14) Blood Urea Nitrogen 12mg/dL (7-20) Creatinine 1.1mg/dL (0.6-1.0) Estimated GFR (Cockcroft-Gault) 62.6 Glucose Level 121mg/dL (70-99) Calcium Level 9.2mg/dL (8.5-10.1) Troponin I Quantitative < 0.017ng/mL (0.000-0.055) Ethyl Alcohol Level < 10mg/dL (0-10) Urine Collection Type U cath Urine Color Lotus Urine Clarity Turbid Urine pH 5.0 Urine Specific [place] >=1.030 Urine Protein 30mg/dL (NEG-TRACE) Urine Glucose (UA) Negativemg/dL (NEG) Urine Ketones (Stick) Negativemg/dL (NEG) Urine Blood Negative (NEG) Urine Nitrite Negative (NEG) Urine Bilirubin Small (NEG) Urine Urobilinogen Dipstick 1.0mg/dL (0.2 mg/dL) Urine Leukocyte Esterase Negative (NEG) Urine RBC Occ/HPF (0-2) Urine WBC Occ/HPF (0-4) Urine Squamous Epithelial Cells Few/LPF Urine Bacteria 0/HPF (0-FEW) Urine Hyaline Casts Moderate/HPF Urine Mucus Marked/LPF Urine Opiates Screen Neg (NEG) Urine Methadone Screen Neg (NEG) Urine Barbiturates Neg (NEG) Urine Phencyclidine Screen Neg (NEG) Urine Amphetamine/Methamphetamine Neg (NEG) Urine Benzodiazepines Screen Neg (NEG) Urine Cocaine Screen Neg (NEG) Urine Cannabinoids Screen Neg (NEG) Urine Ethyl Alcohol Neg (NEG) Nasal Screen MRSA (PCR) Negative (Negative) Medications Current Medications Sodium Chloride (Iv Sodium Chloride 0.9% 1000ml Bag) 1,000 ml @ 1,000 mls/hr 1X ONCE IV Last administered on 08/17/16 22:15; Start 08/17/16 at 22:15; Stop 08/17/16 at 23:14; Status DC Naloxone HCl (Narcan) 1 mg 1X ONCE IV Last administered on 08/17/16 22:11; Start 08/17/16 at 22:15; Stop 08/17/16 at 22:16; Status DC Naloxone HCl 0.4 mg 0.4 mg STK-MED ONCE .ROUTE ; Start 08/17/16 at 22:06; Stop at 22:07; Status DC Sodium Chloride (Iv Sodium Chloride 0.9% 1000ml Bag) 1,000 ml @ 100 mls/hr Q10H IV Last administered on 08/18/16 16:30; Start 08/17/16 at 23:15; Stop at 23:14; Status DC Acetaminophen (Tylenol) 650 mg PRN Q6HRS PRN PO PAIN; Start 08/18/16 at 09:00 Amlodipine Besylate (Norvasc) 10 mg DAILY PO Last administered on 08/19/16 08: 29; Start 08/18/16 at 09:00 Dipyridamole/ Aspirin (Aggrenox) 1 cap BID PO Last administered on 08/19/16 08 :28; Start 08/18/16 at 09:00 Atorvastatin Calcium (Lipitor) 40 mg QHS PO Last administered on 08/18/16 21:33 ; Start 08/18/16 at 21:00 Calcium Carbonate/ Glycine (Oscal) 500 mg TID PO Last administered on 08:28; Start 08/18/16 at 09:00 Magnesium Hydroxide (Milk Of Magnesia) 400 mg DAILY PRN PO CONSTIPATION; Start 08/18/16 at 09:00 Metoprolol Tartrate (Lopressor) 50 mg DAILY PO ; Start 08/18/16 at 09:00; Stop at 18:40; Status DC Risperidone (Risperdal) 0.25 mg QHS PO Last administered on 08/18/16 21:33; Start 08/18/16 at 21:00 Vitamin D (Vitamin D3) 1,000 unit DAILY PO Last administered on 08/19/16 08:29 ; Start 08/18/16 at 09:00 Potassium Chloride (Klor-Con) 20 meq QHS PO Last administered on 08/18/16 21:34 ; Start 08/18/16 at 21:00 Nystatin (Nystop) 1 carlos BID TP Last administered on 08/18/16 21:34; Start at 09:00 Enoxaparin Sodium (Lovenox 40mg Syringe) 40 mg Q24H SQ Last administered on 08/18 12:23; Start 08/18/16 at 12:00; Stop 08/18/16 at 16:13; Status DC Enoxaparin Sodium (Lovenox 40mg Syringe) 40 mg BID SQ Last administered on 21:33; Start 08/18/16 at 21:00 Active Scripts Active Reported Risperdal (Risperidone) 0.25 Mg Tablet 1 Tab PO QHS K-Tab ER (Potassium Chloride) 20 Meq Tablet.er 20 Meq PO HS Oyster Shell Calcium (Calcium Carbonate) 500 Mg Tablet 500 Mg PO TID Nystatin 1 Each Powder.ea. 1 Each PO PRN Milk Of Magnesia (Magnesium Hydroxide) 400 Mg/5 Ml Oral.susp 400 Mg PO PRN Metoprolol Tartrate 50 Mg Tablet 1 Tab PO DAILY Vitamin D (Cholecalciferol (Vitamin D3)) 2,000 Unit Capsule 1 Cap PO DAILY Lipitor (Atorvastatin Calcium) 40 Mg Tablet 1 Tab PO QHS Amlodipine Besylate 10 Mg Tablet 10 Mg PO DAILY Aggrenox 25 Mg-200 Mg Capsule (Aspirin/Dipyridamole) 1 Each Cpmp.12hr 1 Cap PO BID Tylenol (Acetaminophen) 325 Mg Tablet 650 Mg PO PRN Q6HRS PRN Vitals/I & O Vital Sign - Last 24 Hours 08/18/16 08/18/16 08/18/16 08/18/16 15:36 19:35 20:00 23:30 Temp 97.9 97.4 97.8 97.9 97.4 97.8 Pulse 61 66 62 Resp 18 18 20 B/P 133/56 125/66 152/76 Pulse Ox 97 98 99 O2 Delivery Room Air Room Air Room Air Room Air 08/19/16 08/19/16 08/19/16 08/19/16 03:00 07:55 07:57 08:29 Temp 98.1 98.1 98.1 98.1 Pulse 68 55 55 Resp 18 18 B/P 139/60 139/51 139/51 Pulse Ox 96 100 O2 Delivery Room Air Room Air Room Air 08/19/16 11:55 Temp 97.9 97.9 Pulse 66 Resp 20 B/P 132/46 Pulse Ox 97 O2 Delivery Room Air Intake and Output 08/18/16 08/18/16 08/19/16 14:59 22:59 06:59 Intake Total 1560 ml 200 ml Output Total 300 ml Balance -300 ml 1560 ml 200 ml BECKY BAKER MD Aug 19, 2016 12:29
[2016-08-19] MEDS: NYSTATIN TOPICAL POWDER 15GM BOTTLE. TP SCH ×2 (12:30→20:51)
[2016-08-19] MEDS: ENOXAPARIN 40 MG/0.4 ML SYRINGE. SQ SCH ×2 (12:31→20:49)
--- NOTE | 2016-08-19 14:09 | PDOC ---
PROGRESS NOTES Chief Complaint Chief Complaint s/p fall in SNF Bradycardia ASSESSMENT AND PLAN: 1. Bradycardia: resolved. BB stopped. echo pending. ok to D/C when results available. 2. s/p fall: non-injury. poss due to above. 3.. Hx CVA with R residual weakness: able to ambulate w/walker 4. Psychosis: cont home risperdal 5. HTN: well controlled 6. CKD2: stable 7. Prophylaxis: PPI, lovenox 8. Obesity Vitals Vitals Vital Signs Date Time Temp Pulse Resp B/P Pulse Ox O2 Delivery O2 Flow Rate FiO2 08/19/16 11:55 97.9 66 20 132/46 97 Room Air 97.9 Physical Exam General: Alert, Cooperative, No acute distress Heart: Regular rate Lungs: Clear Abdomen: Normal bowel sounds, Soft, No tenderness, Other (obese) Extremities: No clubbing, No edema Skin: No rashes Review of Systems Review of Systems feels ok. expressive aphasia, stroke related. indicates no CP/ SOB/ abd issues SAYRA BIRD MD Aug 19, 2016 14:09
[2016-08-19 15:54] VITALS: BP 146/68
--- NOTE | 2016-08-19 17:40 | PDOC ---
PROGRESS NOTES Assessment Assessment IMPRESSION: Metabolic encephalopathy. Syncopal spells. 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 Obesity. RECOMMENDATIONS/PLAN: Continue Aggrenox daily. Continue Lipitor HS. Repeat HCT. She was unable to cooperative for MRI. OT/PT. History of Present Illness History of Present Illness The patient is a 55-year-old right-handed female with history of stroke [facility] She apparently is back to her baseline now. No further history is obtainable. Past Medical History Cardiovascular: HTN, Hyperlipidemia CENTRAL NERVOUS SYSTEM: CVA Psych: Depression, Psychosis Renal/: UTI Past Surgical History Past Surgical History: No pertinent history Family History Family History: No pertinent hx Social History Social History She denies tobacco or alcohol as best I can tell ALLERGY: Reviewed. MEDICATIONS: Refer to MAR REVIEW OF SYSTEMS: See PMX and PSH. PHYSICAL EXAMINATION: General appearance in no acute distress. HEENT: Normocephalic and nontraumatic. Eyes, nose, ears, and throat are unremarkable. Hearing decrease. Neck is supple. No lymphadenopathy. No Crepitus. Cardiovascular: S1, S2, regular rate and rhythm. Pulmonary: Clear to auscultation bilaterally. Abdomen: Bowel sounds are positive. Extremities: No rash, lesions, or edema. Restriction of range of motion in right UE. NEUROLOGICAL EXAMINATION: Awake. Not oriented to time, place but knew person. PERRL. EOMI. CN: no acute focal findings. Muscle tone: Increased in right UE > right LE. Muscle strength: 3+ right UE, 4 right LE. 5 lefts amanda. DTR: 1-2 Plantar reflex: Neutral response bilaterally Gait: not examined in chair. Sensory exam: no abnormal findings. No obvious cerebellar signs elicited. Objective Objective Vital Signs Date Time Temp Pulse Resp B/P Pulse Ox O2 Delivery O2 Flow Rate FiO2 08/19/16 15:54 97.8 63 20 146/68 97 Room Air 97.8 Intake and Output 08/19/16 07:00 Intake Total 1760 ml Output Total 300 ml Balance 1460 ml Intake Oral 760 ml IV Total 1000 ml Output Urine Total 300 ml # Voids 6 Vitals Signs Vitals VS - Last 72 Hours, by Label Date Time Temp Pulse Resp B/P Pulse Ox O2 Delivery O2 Flow Rate FiO2 08/19/16 15:54 97.8 63 20 146/68 97 Room Air 97.8 08/19/16 11:55 97.9 66 20 132/46 97 Room Air 97.9 08/19/16 08:29 55 139/51 08/19/16 07:57 98.1 55 18 139/51 100 Room Air 98.1 08/19/16 07:55 Room Air 08/19/16 03:00 98.1 68 18 139/60 96 Room Air 98.1 08/18/16 23:30 97.8 62 20 152/76 99 Room Air 97.8 08/18/16 20:00 Room Air 08/18/16 19:35 97.4 66 18 125/66 98 Room Air 97.4 08/18/16 15:36 97.9 61 18 133/56 97 Room Air 97.9 08/18/16 11:26 97.2 64 17 168/74 98 Room Air 97.2 08/18/16 09:00 55 08/18/16 08:00 Room Air 08/18/16 07:00 97.5 63 18 118/58 98 Room Air 97.5 Medication Medications Current Medications Atorvastatin Calcium (Lipitor) 40 mg QHS PO Last administered on 08/18/16 21:33 ; Start 08/18/16 at 21:00 Enoxaparin Sodium (Lovenox 40mg Syringe) 40 mg BID SQ Last administered on 08/19 12:31; Start 08/18/16 at 21:00 Potassium Chloride (Klor-Con) 20 meq QHS PO Last administered on 08/18/16 21:34 ; Start 08/18/16 at 21:00 Risperidone (Risperdal) 0.25 mg QHS PO Last administered on 08/18/16 21:33; Start 08/18/16 at 21:00 Comment Review of Relevant I have reviewed the following items sue (where applicable) has been applied. BEBE AGUIAR MD Aug 19, 2016 17:40
[2016-08-19 19:45] VITALS: BP 146/74
[2016-08-19] MEDS: POTASSIUM CHLORIDE 20 MEQ TABLET.ER. PO SCH (20:49)
[2016-08-19] MEDS: ATORVASTATIN CALCIUM 40 MG TABLET. PO SCH (20:49)
[2016-08-19] MEDS: risperiDONE 0.25 MG TABLET. PO SCH (20:49)
[2016-08-19 23:25] VITALS: BP 127/67
[2016-08-20 03:25] VITALS: BP 146/73
[2016-08-20 07:30] VITALS: BP 149/73
--- NOTE | 2016-08-20 09:23 | RAD ---
CT scan of the head without contrast 08/20/2016 Clinical History: Mental status changes. CVA.. Technique: Unenhanced, contiguous, 5 mm axial sections were obtained through the head. One or more of the following individualized dose reduction techniques were utilized for this study: 1. Automated exposure control. 2. Adjustment of the mA and/or kV according to patient size. 3. Use of iterative reconstruction technique. Findings: Comparison study is dated 08/17/2016. There is generalized parenchymal atrophy. Small scattered areas of decreased attenuation are seen within the periventricular and subcortical white matter of both cerebral hemispheres consistent with areas of small vessel ischemic disease. An area of encephalomalacia is seen involving the left frontal lobe, unchanged. No acute parenchymal abnormality is seen. No extra-axial fluid collection is noted. No skull fracture is noted. Impression: No acute intracranial abnormality is seen.
[2016-08-20] MEDS: CALCIUM CARBONATE 500 MG TABLET PO SCH (09:24)
[2016-08-20] MEDS: AMLODIPINE BESYLATE 10 MG TABLET. PO SCH (09:24)
[2016-08-20] MEDS: CHOLECALCIFEROL (VITAMIN D3) 1,000 UNIT TABLET PO SCH (09:24)
[2016-08-20] MEDS: ASPIRIN/DIPYRIDAMOLE 200/25MG CAP.ER.12H. PO SCH (09:24)
[2016-08-20 11:37] VITALS: BP 133/62
--- NOTE | 2016-08-20 14:16 | PDOC ---
PROGRESS NOTES Assessment Assessment Metabolic encephalopathy. Syncopal spells. 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 Obesity. RECOMMENDATIONS/PLAN: Continue Aggrenox daily. Continue Lipitor HS. Treat medical diseases. FU with PCP. 2 HCTs negative for acute large CVA this time. History of Present Illness The patient is a 55-year-old right-handed female with history of stroke and psychosis found down at the residential unresponsive. She apparently is back to her baseline now. No further history is obtainable. Past Medical History Cardiovascular: HTN, Hyperlipidemia CENTRAL NERVOUS SYSTEM: CVA Psych: Depression, Psychosis Renal/: UTI Past Surgical History No pertinent history Family History Family History: No pertinent hx Social History She denies tobacco or alcohol as best I can tell ALLERGY: Reviewed. MEDICATIONS: Refer to MAR REVIEW OF SYSTEMS: See PMX and PSH. PHYSICAL EXAMINATION: General appearance in no acute distress. HEENT: Normocephalic and nontraumatic. Eyes, nose, ears, and throat are unremarkable. Hearing decrease. Neck is supple. No lymphadenopathy. No Crepitus. Cardiovascular: S1, S2, regular rate and rhythm. Pulmonary: Clear to auscultation bilaterally. Abdomen: Bowel sounds are positive. Extremities: No rash, lesions, or edema. Restriction of range of motion in right UE. NEUROLOGICAL EXAMINATION: Awake. Not oriented to time, but knew place and person. PERRL. EOMI. CN: no acute focal findings. Muscle tone: Increased in right UE > right LE. Muscle strength: 3+ right UE, 4 right LE. 5 left side. Right side old hemiplegia. DTR: 1-2 Plantar reflex: Neutral response bilaterally Gait: not examined in bed. Sensory exam: no abnormal findings. No obvious cerebellar signs elicited. Objective Objective Vital Signs Date Time Temp Pulse Resp B/P Pulse Ox O2 Delivery O2 Flow Rate FiO2 08/20/16 11:37 97.9 77 18 133/62 98 Room Air 97.9 Intake and Output 08/20/16 07:00 Intake Total 200 ml Balance 200 ml Intake Oral 200 ml # Voids 7 Vitals Signs Vitals VS - Last 72 Hours, by Label Date Time Temp Pulse Resp B/P Pulse Ox O2 Delivery O2 Flow Rate FiO2 08/20/16 11:37 97.9 77 18 133/62 98 Room Air 97.9 08/20/16 09:24 56 149/73 08/20/16 08:00 Room Air 08/20/16 07:30 98.2 56 18 149/73 99 Room Air 98.2 08/20/16 03:25 98.1 87 20 146/73 96 Room Air 98.1 08/19/16 23:25 98.2 87 20 127/67 96 Room Air 98.2 08/19/16 20:00 Room Air 08/19/16 19:45 98.0 75 20 146/74 97 Room Air 98.0 08/19/16 15:54 97.8 63 20 146/68 97 Room Air 97.8 08/19/16 11:55 97.9 66 20 132/46 97 Room Air 97.9 08/19/16 08:29 55 139/51 08/19/16 07:57 98.1 55 18 139/51 100 Room Air 98.1 08/19/16 07:55 Room Air Comment Review of Relevant I have reviewed the following items sue (where applicable) has been applied. BEBE AGUIAR MD Aug 20, 2016 14:16
--- NOTE | 2016-08-20 14:25 | PDOC ---
PROGRESS NOTES Subjective Subjective Patient is a poor historian. Unable to have a conversation as patient is only able to say yes or no. Patient laying in bed watching and laughing at the television. Objective Objective Vital Signs Date Time Temp Pulse Resp B/P Pulse Ox O2 Delivery O2 Flow Rate FiO2 08/20/16 11:37 97.9 77 18 133/62 98 Room Air 97.9 Intake and Output 08/20/16 07:00 Intake Total 200 ml Balance 200 ml Intake Oral 200 ml # Voids 7 Physical Exam Abdomen: Normal bowel sounds, Soft Heart: Regular rate, Normal S1, Normal S2 Extremities: No clubbing, No edema General: Alert, No acute distress HEENT: Atraumatic, EOMI Lungs: Clear to auscultation Assessment Assessment Problems Medical Problems: (1) Altered mental status, unspecified Status: Acute (2) H/O: CVA (cerebrovascular accident) Status: Acute - Bradycardia while sleeping (30s) - non injury fall in SNU - hx of cva with R residual weakness Plan Plan of Care - Awaiting Echocardiogram - Spoke with nurse at her facility yesterday. Per nurse pt's baseline is she is able to dress her self and participate in activities. - From a cardiology standpoint, Ok with discharge when primary team says ok. Comment Review of Relevant I have reviewed the following items sue (where applicable) has been applied. Medications Current Medications Sodium Chloride (Iv Sodium Chloride 0.9% 1000ml Bag) 1,000 ml @ 1,000 mls/hr 1X ONCE IV Last administered on 08/17/16 22:15; Start 08/17/16 at 22:15; Stop 08/17/16 at 23:14; Status DC Naloxone HCl (Narcan) 1 mg 1X ONCE IV Last administered on 08/17/16 22:11; Start 08/17/16 at 22:15; Stop 08/17/16 at 22:16; Status DC Naloxone HCl 0.4 mg 0.4 mg STK-MED ONCE .ROUTE ; Start 08/17/16 at 22:06; Stop at 22:07; Status DC Sodium Chloride (Iv Sodium Chloride 0.9% 1000ml Bag) 1,000 ml @ 100 mls/hr Q10H IV Last administered on 08/18/16 16:30; Start 08/17/16 at 23:15; Stop at 23:14; Status DC Acetaminophen (Tylenol) 650 mg PRN Q6HRS PRN PO PAIN; Start 08/18/16 at 09:00 Amlodipine Besylate (Norvasc) 10 mg DAILY PO Last administered on 08/20/16 09: 24; Start 08/18/16 at 09:00 Dipyridamole/ Aspirin (Aggrenox) 1 cap BID PO Last administered on 08/20/16 09 :24; Start 08/18/16 at 09:00 Atorvastatin Calcium (Lipitor) 40 mg QHS PO Last administered on 08/19/16 20: 49; Start 08/18/16 at 21:00 Calcium Carbonate/ Glycine (Oscal) 500 mg TID PO Last administered on 09:24; Start 08/18/16 at 09:00 Magnesium Hydroxide (Milk Of Magnesia) 400 mg DAILY PRN PO CONSTIPATION; Start 08/18/16 at 09:00 Metoprolol Tartrate (Lopressor) 50 mg DAILY PO ; Start 08/18/16 at 09:00; Stop at 18:40; Status DC Risperidone (Risperdal) 0.25 mg QHS PO Last administered on 08/19/16 20:49; Start 08/18/16 at 21:00 Vitamin D (Vitamin D3) 1,000 unit DAILY PO Last administered on 08/20/16 09:24 ; Start 08/18/16 at 09:00 Potassium Chloride (Klor-Con) 20 meq QHS PO Last administered on 08/19/16 20: 49; Start 08/18/16 at 21:00 Nystatin (Nystop) 1 carlos BID TP Last administered on 08/19/16 20:51; Start 08/18 at 09:00 Enoxaparin Sodium (Lovenox 40mg Syringe) 40 mg Q24H SQ Last administered on 08/18 12:23; Start 08/18/16 at 12:00; Stop 08/18/16 at 16:13; Status DC Enoxaparin Sodium (Lovenox 40mg Syringe) 40 mg BID SQ Last administered on 08/19 20:49; Start 08/18/16 at 21:00 Active Scripts Active Reported Risperdal (Risperidone) 0.25 Mg Tablet 1 Tab PO QHS K-Tab ER (Potassium Chloride) 20 Meq Tablet.er 20 Meq PO HS Oyster Shell Calcium (Calcium Carbonate) 500 Mg Tablet 500 Mg PO TID Nystatin 1 Each Powder.ea. 1 Each PO PRN Milk Of Magnesia (Magnesium Hydroxide) 400 Mg/5 Ml Oral.susp 400 Mg PO PRN Metoprolol Tartrate 50 Mg Tablet 1 Tab PO DAILY Vitamin D (Cholecalciferol (Vitamin D3)) 2,000 Unit Capsule 1 Cap PO DAILY Lipitor (Atorvastatin Calcium) 40 Mg Tablet 1 Tab PO QHS Amlodipine Besylate 10 Mg Tablet 10 Mg PO DAILY Aggrenox 25 Mg-200 Mg Capsule (Aspirin/Dipyridamole) 1 Each Cpmp.12hr 1 Cap PO BID Tylenol (Acetaminophen) 325 Mg Tablet 650 Mg PO PRN Q6HRS PRN Vitals/I & O Vital Sign - Last 24 Hours 08/19/16 08/19/16 08/19/16 08/19/16 15:54 19:45 20:00 23:25 Temp 97.8 98.0 98.2 97.8 98.0 98.2 Pulse 63 75 87 Resp 20 20 20 B/P 146/68 146/74 127/67 Pulse Ox 97 97 96 O2 Delivery Room Air Room Air Room Air Room Air 08/20/16 08/20/16 08/20/16 08/20/16 03:25 07:30 08:00 09:24 Temp 98.1 98.2 98.1 98.2 Pulse 87 56 56 Resp 20 18 B/P 146/73 149/73 149/73 Pulse Ox 96 99 O2 Delivery Room Air Room Air Room Air 08/20/16 11:37 Temp 97.9 97.9 Pulse 77 Resp 18 B/P 133/62 Pulse Ox 98 O2 Delivery Room Air Intake and Output 08/19/16 08/19/16 08/20/16 15:00 23:00 07:00 Intake Total 200 ml Balance 200 ml BECKY BAKER MD Aug 20, 2016 14:25
[2016-08-20 14:37] VITALS: BP 128/58
--- NOTE | 2016-08-20 19:08 | CARD ---
APPROVED REPORT EXAM: Two-dimensional and M-mode echocardiogram with Doppler and color Doppler. Other Information Quality : FairHR: 63bpm Rhythm : NSR INDICATION Bradycardia RISK FACTORS Obesity 2D DIMENSIONS RVDd1.9 (2.9-3.5cm)Left Atrium(2D)2.4 (1.6-4.0cm) IVSd0.9 (0.7-1.1cm)Aortic Root(2D)2.7 (2.0-3.7cm) LVDd3.3 (3.9-5.9cm)LVOT Diameter2.1 (1.8-2.4cm) PWd1.0 (0.7-1.1cm)LVDs2.5 (2.5-4.0cm) FS (%) 3.6 %SV2.1 ml LVEF(%)65.0 (>50%) Aortic Valve AoV Peak John.120.9cm/sAoV VTI25.9cm AO Peak GR.5.8mmHgLVOT VTI 20.43cm AO Mean GR.4mmHg Mitral Valve MV E Vlczmjti12.8cm/sMV E Peak Gr.3mmHg MV DECEL [id number] A Rglyhuzx59.0cm/s MV E Mean Gr.1mmHgE/A Ratio0.9 MV A [id number] TDI Lateral E' P. V7.21cm/sMedial E' P. V7.72cm/s E/Lateral E'10.1E/Medial E'9.4 LEFT VENTRICLE The left ventricle is normal size. There is mild concentric LVH The left ventricular systolic functio n is normal and the ejection fraction is within normal range. The Ejection Fraction is 65%. There is normal LV segmental wall motion. Transmitral Doppler flow pattern is Grade I-abnormal relaxation leonora tito. RIGHT VENTRICLE The right ventricle is normal size. There is normal right ventricular wall thickness. The right ventr icular systolic function is normal. ATRIA The left atrium size is normal. The right atrium size is normal. The interatrial septum is intact wit h no evidence for an atrial septal defect or patent foramen ovale as noted on 2-D or Doppler imaging. AORTIC VALVE The aortic valve is normal in structure and function. The aortic valve is trileaflet. Doppler and Col or Flow revealed no significant aortic regurgitation. There is no significant aortic valvular stenosi s. MITRAL VALVE The mitral valve is normal in structure and function. The mitral valve leaflets flatten but there is no evidence of mitral valve prolapse. There is no mitral valve stenosis. Doppler and Color Flow revea led no mitral valve regurgitation noted. TRICUSPID VALVE The tricuspid valve is normal in structure and function. There is no pulmonary hypertension. PULMONIC VALVE Doppler and Color Flow revealed no pulmonic valvular regurgitation. GREAT VESSELS The aortic root is normal in size. The ascending aorta is normal in size. The pulmonary artery is nor mal. The IVC is normal in size and collapses >50% with inspiration. PERICARDIAL EFFUSION There is no evidence of significant pericardial effusion. Critical Notification Critical Value: No <Conclusion> There is mild concentric LVH Transmitral Doppler flow pattern is Grade I-abnormal relaxation pattern. The left atrium size is normal. The right atrium size is normal. The aortic valve is normal in structure and function. The aortic valve is trileaflet. The mitral valve is normal in structure and function. The tricuspid valve is normal in structure and function. Doppler and Color Flow revealed no pulmonic valvular regurgitation. There is no evidence of significant pericardial effusion.
== END 2016-08-20 16:05 | DRG 308 ==
LOC: ER 21:58 → 2 NORTH 23:00
PROVIDERS: ADMIT Internal Medicine; ATTEND Internal Medicine
DX: R00.1 Bradycardia, unspecified (principal); G93.41 Metabolic encephalopathy; I69.351 Hemiplegia and hemiparesis following cerebral infarction affecting right dominant side; R47.01 Aphasia; Z68.41 Body mass index [BMI] 40.0-44.9, adult; W18.30XA Fall on same level, unspecified, initial encounter; E66.9 Obesity, unspecified; E78.5 Hyperlipidemia, unspecified; F29 Unspecified psychosis not due to a substance or known physiological condition; I12.9 Hypertensive chronic kidney disease with stage 1 through stage 4 chronic kidney disease, or unspecified chronic kidney disease; N18.2 Chronic kidney disease, stage 2 (mild); F32.9 Major depressive disorder, single episode, unspecified; R55 Syncope and collapse; Z88.5 Allergy status to narcotic agent; Z87.440 Personal history of urinary (tract) infections; Y93.89 Activity, other specified; Y92.89 Other specified places as the place of occurrence of the external cause; Y99.8 Other external cause status
CPT/HCPCS: 36415; 51701; 70450; 80048; 81001; 84484; 85027; 87641; 93005; 93306; 96361; 96374; G0480; G0481; J1650; J2310; J7030; 97116; 97530; 99285-25

== ENCOUNTER 2021-08-20 12:27 | Inpatient (IN) | payer MEDICARE, MEDICAID ==
[~2021-08-20] VITALS: Ht 162.6 cm; Wt 108.0 kg
[~2021-08-20 12:27] MED LIST: ACET325T9 PO; AMLO-187 PO; ASPI1CPM PO; ATOR40TA PO; CALC500T14 PO; CHOL2000 PO; MAGN400O7 PO; METO50TA6 PO; NYST1POW2 PO; POTA20TA84 PO; RISP0.2519 PO
[2021-08-20] MEDS ORDERED: FLUCONAZOLE 100 MG TABLET. PO ONE (13:15)
--- NOTE | 2021-08-20 13:19 | PHYS DOC ---
Past Medical History Past Medical History: Constipation, CVA, Depression, High Cholesterol, Hy pertension, Stroke, UTI, Other Additional Past Medical Histor: RT hemiparesis, aphasia, candidiasis, hypok alemia Past Surgical History: Other Additional Past Surgical Histo: UNKNOWN Smoking Status: Never Smoker Alcohol Use: None Drug Use: None General Adult EDM: Chief Complaint: SKIN PROBLEM HPI: HPI: Patient is a 60 year old male who presents from nursing facility who presents with painful rash beneath her left breast. Patient is able to answer affirmatively or negatively to questions secondary to her aphasia status post CVA. She reports the rash has been present for a few weeks and is very painful. Patient is unable to provide further history. Review of Systems: Review of Systems: ROS negative or noncontributory except as mentioned in HPI, although difficult to obtain secondary to patient's deficits status post CVA. Heart Score: C/O Chest Pain: N/A Current Medications: Current Medications Medications (Trade) Dose Ordered Sig/Charu Start Time Stop Time Status Last Admin Dose Admin Fluconazole (Diflucan) 200 mg 1X ONCE 08/20/21 13:15 08/20/21 13:16 Nystatin (Nystop) 1 carlos BID 08/20/21 13:09 Allergies: Allergies: Allergies Coded Allergies Type Severity Reaction Last Updated Verified codeine Allergy Intermediate 08/17/16 Yes Physical Exam: PE: Constitutional: Obese, no acute distress, non-toxic appearance. HENT: Normocephalic, atraumatic, bilateral external ears normal, nose normal. Eyes: EOMI, conjunctiva normal, no discharge. Neck: Normal range of motion, no stridor. Cardiovascular: Heart regular rate and rhythm. No apparent murmurs, rubs or gallops. Lungs & Thorax: Bilateral breath sounds clear to auscultation. Skin: Intertriginous folds beneath left breast malodorous, moist/tacky, erythematous and exquisitely tender with superficial maceration. Skin otherwise warm, dry, no erythema, no rash. Neurologic: Alert and oriented x4, no focal deficits noted new from baseline. Current Patient Data: Labs: Laboratory Tests Test 08/20/21 13:50 08/20/21 15:26 08/20/21 17:28 White Blood Count 7.8 x10^3/uL (4.0-11.0) Red Blood Count 4.29 x10^6/uL (3.50-5.40) Hemoglobin 13.1 g/dL (12.0-15.5) Hematocrit 38.8 % (36.0-47.0) Mean Corpuscular Volume 91 fL (79-100) Mean Corpuscular Hemoglobin 31 pg (25-35) Mean Corpuscular Hemoglobin Concent 34 g/dL (31-37) Red Cell Distribution Width 13.1 % (11.5-14.5) Platelet Count 237 x10^3/uL (140-400) Neutrophils (%) (Auto) 63 % (31-73) Lymphocytes (%) (Auto) 24 % (24-48) Monocytes (%) (Auto) 11 % (0-9) Eosinophils (%) (Auto) 2 % (0-3) Basophils (%) (Auto) 1 % (0-3) Neutrophils # (Auto) 4.9 x10^3/uL (1.8-7.7) Lymphocytes # (Auto) 1.8 x10^3/uL (1.0-4.8) Monocytes # (Auto) 0.8 x10^3/uL (0.0-1.1) Eosinophils # (Auto) 0.2 x10^3/uL (0.0-0.7) Basophils # (Auto) 0.0 x10^3/uL (0.0-0.2) Sodium Level 142 mmol/L (136-145) Potassium Level 3.8 mmol/L (3.5-5.1) Chloride Level 107 mmol/L (98-107) Carbon Dioxide Level 26 mmol/L (21-32) Anion Gap 9 (6-14) Blood Urea Nitrogen 10 mg/dL (7-20) Creatinine 1.0 mg/dL (0.6-1.0) Estimated GFR (Cockcroft-Gault) 68.7 BUN/Creatinine Ratio 10 (6-20) Glucose Level 98 mg/dL (70-99) Calcium Level 9.5 mg/dL (8.5-10.1) Magnesium Level 1.8 mg/dL (1.8-2.4) Total Bilirubin 0.4 mg/dL (0.2-1.0) Aspartate Amino Transf (AST/SGOT) 17 U/L (15-37) Alanine Aminotransferase (ALT/SGPT) 31 U/L (14-59) Alkaline Phosphatase 110 U/L (46-116) Total Protein 7.3 g/dL (6.4-8.2) Albumin 3.0 g/dL (3.4-5.0) Albumin/Globulin Ratio 0.7 (1.0-1.7) Lactic Acid Level 0.7 mmol/L (0.4-2.0) Urine Collection Type Unknown Urine Color (Auto) Light yellow Urine Turbidity Clear Urine pH (Auto) 5.0 (<5.0-8.0) Urine Specific [place] 1.023 (1.000-1.030) Urine Protein (Auto) Negative mg/dL (Negative) Urine Glucose (Auto)(UA) Negative mg/dL (Negative) Urine Ketones (Auto) 10 mg/dL (Negative) Urine Blood (Auto) Small (Negative) Urine Nitrite Negative (Negative) Urine Bilirubin (Auto) Negative (Negative) Urine Urobilinogen (Auto) Normal mg/dL (Normal) Urine Leukocyte Esterase (Auto) Moderate (Negative) Urine RBC 6-10 /HPF (0-2) Urine WBC 11-20 /HPF (0-4) Urine Squamous Epithelial Cells Few /LPF Urine Bacteria Few /HPF (0-FEW) Urine Mucus Mod /LPF Vital Signs: Vital Signs Date Time Temp Pulse Resp B/P (MAP) Pulse Ox O2 Delivery O2 Flow Rate FiO2 08/20/21 12:37 100.1 98 20 181/77 (111) 97 Room Air 100.1 Course & Med Decision Making: Course & Med Decision Making Pertinent Labs and Imaging studies reviewed. (See chart for details) Patient is a 60-year-old female with past medical history that includes residual deficits status post CVA who presents with left-sided pain secondary to a rash beneath her breast. Due to her aphasia, she is able to answer questions affirm atively or negatively, but cannot provide longer answers to questions. Patient sister is at bedside, but does not offer significant additional history. It does seem as though nursing facility has attempted to treat her intertriginous yeast infection without success. At this time, patient will be admitted for inpatient management and possibly reassignment of nursing facility. Dr. Montoya, hospitalist, gladly accepts patient for admission Teodora Disclaimer: Teodora Disclaimer: This electronic medical record was generated, in whole or in part, using a voice recognition dictation system. Departure Departure Impression: Primary Impression: Candidiasis of breast Additional Impressions: Intertriginous dermatitis associated with moisture Aphasia following cerebrovascular accident (CVA) Psychomotor deficit following unspecified cerebrovascular disease H/O: CVA (cerebrovascular accident) Disposition: 09 ADMITTED INPATIENT Admitting Physician: DUANE Wagner) Condition: GUARDED Referrals: JOSÉ MIGUEL SANDERS (PCP) CHITRA NEWMAN Aug 20, 2021 13:19
[2021-08-20] MEDS ORDERED: IV RINGERS,LACTATED 1000ML 1,000 ML IV ONE (13:30)
[2021-08-20 14:02] LABS: BASO % 1 % (0-3); EOS # 0.2 x10^3/uL (0.0-0.7); EOS % 2 % (0-3); HEMATOCRIT 38.8 % (36.0-47.0); HEMOGLOBIN 13.1 g/dL (12.0-15.5); LYMPH # 1.8 x10^3/uL (1.0-4.8); LYMPH % 24 % (24-48); MEAN CORPUSCULAR HEMOGLOBIN 31 pg (25-35); MEAN CORPUSCULAR HGB CONC 34 g/dL (31-37); MEAN CORPUSCULAR VOLUME 91 fL (79-100); MONO # 0.8 x10^3/uL (0.0-1.1); MONO % 11 % (0-9); NEUT # 4.9 x10^3/uL (1.8-7.7); NEUT % 63 % (31-73); PLATELET COUNT 237 x10^3/uL (140-400); RED BLOOD COUNT 4.29 x10^6/uL (3.50-5.40); RED CELL DISTRIBUTION WIDTH 13.1 % (11.5-14.5); WHITE BLOOD COUNT 7.8 x10^3/uL (4.0-11.0)
[2021-08-20 14:09] LABS: CALCIUM 9.5 mg/dL (8.5-10.1); GFR 68.7; POTASSIUM 3.8 mmol/L (3.5-5.1)
[2021-08-20 14:15] LABS: ALBUMIN/GLOBULIN RATIO 0.7 (1.0-1.7); MAGNESIUM 1.8 mg/dL (1.8-2.4); TOTAL BILIRUBIN 0.4 mg/dL (0.2-1.0); TOTAL PROTEIN 7.3 g/dL (6.4-8.2)
[2021-08-20] MEDS: NYSTATIN TOPICAL POWDER 15GM BOTTLE. TP SCH (14:27)
[2021-08-20] MEDS ORDERED: oxyCODONE/APAP 5/325 1 TAB TABLET PO PRN ×2 (18:00)
[2021-08-20] MEDS ORDERED: ONDANSETRON PF 4 MG/2 ML VIAL. IVP PRN (18:00)
[2021-08-20] MEDS ORDERED: ACETAMINOPHEN 325 MG TABLET. PO PRN (18:00)
[2021-08-20] MEDS ORDERED: HYDROcodone/APAP 5/325MG 1 TAB TABLET PO PRN (18:00)
[2021-08-20] MEDS ORDERED: ZOLPIDEM 5 MG TABLET. PO PRN (18:00)
[2021-08-20] MEDS ORDERED: MAGNESIUM HYDROXIDE 2,400 MG/30 ML ORAL.SUSP. PO PRN (18:00)
[2021-08-20] MEDS ORDERED: CALCIUM CARBONATE 500 MG TAB.CHEW PO PRN (18:00)
[2021-08-20] MEDS ORDERED: MAG HYDROX/ALUMINUM HYD/SIMETH 30 ML ORAL.SUSP PO PRN (18:00)
--- NOTE | 2021-08-20 18:08 | PDOC1 ---
History and Physical Date of Admission Date of Admission DATE: 08/20/21 TIME: 17:59 Identification/Chief Complaint Chief Complaint Chest wall pain Source Source: Chart review History of Present Illness History of Present Illness Patient is a 60-year-old female with history of CVA and residual aphasia, who presents to the ED with complaints of left chest pain. Her pain is located underneath her breast. She reports sharp, constant pain. Pain appears to be secondary to extensive tinea corporis underneath her left breast. Labs admission were largely unremarkable, WBC 7.8, albumin 3.0. Due to the level of neglect there would have to be possible to make an extensive fungal infection like what was seen on admission possible, will admit patient for further medical management and likely further placement options for family. Past Medical History Cardiovascular: HTN, Hyperlipidemia CENTRAL NERVOUS SYSTEM: CVA Psych: Depression, Psychosis Renal/: UTI Past Surgical History Past Surgical History: No pertinent history Family History Family History: Family History Unknown Social History Smoke: No ALCOHOL: none Drugs: None Current Problem List Problem List Problems Medical Problems: (1) Aphasia following cerebrovascular accident (CVA) Status: Acute (2) Candidiasis of breast Status: Acute (3) H/O: CVA (cerebrovascular accident) Status: Acute (4) Intertriginous dermatitis associated with moisture Status: Acute (5) Psychomotor deficit following unspecified cerebrovascular disease Status: Acute Current Medications Current Medications Current Medications Nystatin (Nystop) 1 carlos BID TP Last administered on 08/20/21at 14:27; Start 08/20/21 at 13:09 Fluconazole (Diflucan) 200 mg 1X ONCE PO Last administered on 08/20/21at 15:48; Start 08/20/21 at 13:15; Stop 08/20/21 at 13:16; Status DC Ringer's Solution 1,000 ml @ 1,000 mls/hr 1X ONCE IV Last administered on 08/20/21at 15:46; Start 08/20/21 at 13:30; Stop 08/20/21 at 14:29; Status DC Clotrimazole (Lotrimin) 1 carlos BID TP ; Start 08/20/21 at 21:00 Active Scripts Active Reported Risperdal (Risperidone) 0.25 Mg Tablet 1 Tab PO QHS K-Tab ER (Potassium Chloride) 20 Meq Tablet.er 20 Meq PO HS Oyster Shell Calcium (Calcium Carbonate) 500 Mg Tablet 500 Mg PO TID Nystatin 1 Each Powder.ea. 1 Each PO PRN Milk Of Magnesia (Magnesium Hydroxide) 400 Mg/5 Ml Oral.susp 400 Mg PO PRN Metoprolol Tartrate 50 Mg Tablet 1 Tab PO DAILY Vitamin D (Cholecalciferol (Vitamin D3)) 2,000 Unit Capsule 1 Cap PO DAILY Lipitor (Atorvastatin Calcium) 40 Mg Tablet 1 Tab PO QHS Amlodipine Besylate 10 Mg Tablet 10 Mg PO DAILY Aggrenox 25 Mg-200 Mg Capsule (Aspirin/Dipyridamole) 1 Each Cpmp.12hr 1 Cap PO BID Tylenol (Acetaminophen) 325 Mg Tablet 650 Mg PO PRN Q6HRS PRN Allergies Allergies: Coded Allergies: codeine (Verified Allergy, Intermediate, 08/17/16) ROS Review of System Unable to obtain due to clinical condition Physical Exam Physical Exam General: Alert, Cooperative, mild distress. HEENT: PERRLA, EOMI Lungs: Clear to auscultation, Normal air movement Heart: RRR, no murmurs Cardiovascular: S1, S2 Abdomen: Normal bowel sounds, Soft, No tenderness Extremities: Bilateral braces. No clubbing, No cyanosis Skin: >15 cm area of erythema and induration under her left breast. Neuro: Normal speech, Normal tone, Sensation intact Psych/Mental Status: Mental status NL, Mood NL Vitals Vitals Vital Signs Date Time Temp Pulse Resp B/P (MAP) Pulse Ox O2 Delivery O2 Flow Rate FiO2 08/20/21 12:37 100.1 98 20 181/77 (111) 97 Room Air 100.1 Labs Labs Laboratory Tests Test 08/20/21 13:50 08/20/21 15:26 White Blood Count 7.8 x10^3/uL (4.0-11.0) Red Blood Count 4.29 x10^6/uL (3.50-5.40) Hemoglobin 13.1 g/dL (12.0-15.5) Hematocrit 38.8 % (36.0-47.0) Mean Corpuscular Volume 91 fL (79-100) Mean Corpuscular Hemoglobin 31 pg (25-35) Mean Corpuscular Hemoglobin Concent 34 g/dL (31-37) Red Cell Distribution Width 13.1 % (11.5-14.5) Platelet Count 237 x10^3/uL (140-400) Neutrophils (%) (Auto) 63 % (31-73) Lymphocytes (%) (Auto) 24 % (24-48) Monocytes (%) (Auto) 11 % (0-9) Eosinophils (%) (Auto) 2 % (0-3) Basophils (%) (Auto) 1 % (0-3) Neutrophils # (Auto) 4.9 x10^3/uL (1.8-7.7) Lymphocytes # (Auto) 1.8 x10^3/uL (1.0-4.8) Monocytes # (Auto) 0.8 x10^3/uL (0.0-1.1) Eosinophils # (Auto) 0.2 x10^3/uL (0.0-0.7) Basophils # (Auto) 0.0 x10^3/uL (0.0-0.2) Sodium Level 142 mmol/L (136-145) Potassium Level 3.8 mmol/L (3.5-5.1) Chloride Level 107 mmol/L (98-107) Carbon Dioxide Level 26 mmol/L (21-32) Anion Gap 9 (6-14) Blood Urea Nitrogen 10 mg/dL (7-20) Creatinine 1.0 mg/dL (0.6-1.0) Estimated GFR (Cockcroft-Gault) 68.7 BUN/Creatinine Ratio 10 (6-20) Glucose Level 98 mg/dL (70-99) Calcium Level 9.5 mg/dL (8.5-10.1) Magnesium Level 1.8 mg/dL (1.8-2.4) Total Bilirubin 0.4 mg/dL (0.2-1.0) Aspartate Amino Transf (AST/SGOT) 17 U/L (15-37) Alanine Aminotransferase (ALT/SGPT) 31 U/L (14-59) Alkaline Phosphatase 110 U/L (46-116) Total Protein 7.3 g/dL (6.4-8.2) Albumin 3.0 g/dL (3.4-5.0) Albumin/Globulin Ratio 0.7 (1.0-1.7) Lactic Acid Level 0.7 mmol/L (0.4-2.0) Laboratory Tests Test 08/20/21 13:50 08/20/21 15:26 White Blood Count 7.8 x10^3/uL (4.0-11.0) Red Blood Count 4.29 x10^6/uL (3.50-5.40) Hemoglobin 13.1 g/dL (12.0-15.5) Hematocrit 38.8 % (36.0-47.0) Mean Corpuscular Volume 91 fL (79-100) Mean Corpuscular Hemoglobin 31 pg (25-35) Mean Corpuscular Hemoglobin Concent 34 g/dL (31-37) Red Cell Distribution Width 13.1 % (11.5-14.5) Platelet Count 237 x10^3/uL (140-400) Neutrophils (%) (Auto) 63 % (31-73) Lymphocytes (%) (Auto) 24 % (24-48) Monocytes (%) (Auto) 11 % (0-9) Eosinophils (%) (Auto) 2 % (0-3) Basophils (%) (Auto) 1 % (0-3) Neutrophils # (Auto) 4.9 x10^3/uL (1.8-7.7) Lymphocytes # (Auto) 1.8 x10^3/uL (1.0-4.8) Monocytes # (Auto) 0.8 x10^3/uL (0.0-1.1) Eosinophils # (Auto) 0.2 x10^3/uL (0.0-0.7) Basophils # (Auto) 0.0 x10^3/uL (0.0-0.2) Sodium Level 142 mmol/L (136-145) Potassium Level 3.8 mmol/L (3.5-5.1) Chloride Level 107 mmol/L (98-107) Carbon Dioxide Level 26 mmol/L (21-32) Anion Gap 9 (6-14) Blood Urea Nitrogen 10 mg/dL (7-20) Creatinine 1.0 mg/dL (0.6-1.0) Estimated GFR (Cockcroft-Gault) 68.7 BUN/Creatinine Ratio 10 (6-20) Glucose Level 98 mg/dL (70-99) Calcium Level 9.5 mg/dL (8.5-10.1) Magnesium Level 1.8 mg/dL (1.8-2.4) Total Bilirubin 0.4 mg/dL (0.2-1.0) Aspartate Amino Transf (AST/SGOT) 17 U/L (15-37) Alanine Aminotransferase (ALT/SGPT) 31 U/L (14-59) Alkaline Phosphatase 110 U/L (46-116) Total Protein 7.3 g/dL (6.4-8.2) Albumin 3.0 g/dL (3.4-5.0) Albumin/Globulin Ratio 0.7 (1.0-1.7) Lactic Acid Level 0.7 mmol/L (0.4-2.0) VTE Prophylaxis Ordered VTE Prophylaxis Devices: No VTE Pharmacological Prophylaxi: Yes Assessment/Plan Assessment/Plan Tinea corporis Mild malnutrition History of CVA with aphasia Plan: Patient received p.o. fluconazole x1. Discussed with pharmacy, this p.o. medication is dosed weekly. Will treat with topical clotrimazole twice daily. We will discuss with family about fdc options where she can receive better care. PT/OT Resume home medications FEN - Cardiac diet PPX - Lovenox FULL CODE Dispo - inpatient for above Justifications for Admission Other Justification ISIAH CANADA MD Aug 20, 2021 18:07
[2021-08-20 18:10] LABS: BACTERIA,URINE FEW /HPF (0-FEW)
--- NOTE | 2021-08-20 20:30 | NUR ---
Patient admitted from ER to room 444 per cart. Admitting diagnosis: tinea corporis, yeast infection and deficits/aphasia s/p CVA. Patient is alert and oriented x4. Patient answers questions by yes and no. Patient lives in a assisted. Patient ambulates with a walker. Gait in unsteady. Patient's right arm is contracted and she wears corrective shoes with a brace on her right lower leg. Patient is allergic to codeine.
[2021-08-20 20:45] VITALS: BP 93/60
[2021-08-20] MEDS: risperiDONE 0.25 MG TABLET. PO SCH (22:24)
[2021-08-20] MEDS: ATORVASTATIN CALCIUM 40 MG TABLET. PO SCH (22:24)
[2021-08-20] MEDS: DOCUSATE SODIUM 100 MG CAPSULE. PO SCH (22:24)
[2021-08-20] MEDS: ASPIRIN/DIPYRIDAMOLE 200/25MG CAP.ER.12H. PO SCH (22:24)
[2021-08-20] MEDS: ENOXAPARIN 40 MG/0.4 ML SYRINGE. SQ SCH (22:27)
[2021-08-20 23:00] VITALS: BP 162/75
[2021-08-21] MEDS: CLOTRIMAZOLE 1% TOPICAL CREAM 14GM TUBE. TP SCH ×3 (02:20→21:00)
[2021-08-21] MEDS: NYSTATIN TOPICAL POWDER 15GM BOTTLE. TP SCH ×3 (02:29→22:06)
[2021-08-21 03:00] VITALS: BP 139/64
[2021-08-21 07:00] VITALS: BP 144/63
[2021-08-21] MEDS: DOCUSATE SODIUM 100 MG CAPSULE. PO SCH ×2 (08:42→22:03)
[2021-08-21] MEDS: METOPROLOL TART IMMED RELEASE 50 MG TABLET. PO SCH (08:42)
[2021-08-21] MEDS: ASPIRIN/DIPYRIDAMOLE 200/25MG CAP.ER.12H. PO SCH ×2 (08:42→22:03)
[2021-08-21 11:00] VITALS: BP 134/68
--- NOTE | 2021-08-21 12:22 | PDOC ---
[facility] PROGRESS NOTE Date of Service DOS: DATE: 08/21/21 TIME: 12:21 Chief Complaint Chief Complaint Tinea corporis Left breast cellulitis Gram positive blood cultures Mild malnutrition History of CVA with aphasia HTN HLD FEN - Dysphagia diet PPX - heparin FULL CODE DIspo - inpatient History of Present Illness History of Present Illness Patient is a 60-year-old female with history of CVA and residual aphasia, who presents to the ED with complaints of left breast rash. Her pain is located underneath her breast. She reports sharp, constant pain. Pain appears to be secondary to extensive tinea corporis underneath her left breast. Labs admiss ion were largely unremarkable, WBC 7.8, albumin 3.0. 08/21: Blood cultures positive for gram-positive cocci 1-3 bottles. Treating systemically and topically for fungal dermatitis in her left breast which is extensive. Not clear this is a cellulitis but given the positive blood cultures will initiate IV antibiotics and consult infectious diseases. Patient is able to nod and follow directions and say "uh-huh" otherwise she is aphasic. Vitals/I&O Vitals/I&O: Vital Signs Date Time Temp Pulse Resp B/P (MAP) Pulse Ox O2 Delivery O2 Flow Rate FiO2 08/21/21 11:00 98.5 75 16 134/68 (90) 94 Room Air 98.5 I & O 08/20/21 08/20/21 08/21/21 15:00 23:00 07:00 Intake Total 200 ml Output Total 150 ml Balance 200 ml -150 ml Physical Exam General: Alert, Cooperative Lungs: Clear Labs Labs: Laboratory Tests Test 08/20/21 13:50 08/20/21 15:26 08/20/21 17:28 White Blood Count 7.8 x10^3/uL (4.0-11.0) Red Blood Count 4.29 x10^6/uL (3.50-5.40) Hemoglobin 13.1 g/dL (12.0-15.5) Hematocrit 38.8 % (36.0-47.0) Mean Corpuscular Volume 91 fL (79-100) Mean Corpuscular Hemoglobin 31 pg (25-35) Mean Corpuscular Hemoglobin Concent 34 g/dL (31-37) Red Cell Distribution Width 13.1 % (11.5-14.5) Platelet Count 237 x10^3/uL (140-400) Neutrophils (%) (Auto) 63 % (31-73) Lymphocytes (%) (Auto) 24 % (24-48) Monocytes (%) (Auto) 11 % (0-9) Eosinophils (%) (Auto) 2 % (0-3) Basophils (%) (Auto) 1 % (0-3) Neutrophils # (Auto) 4.9 x10^3/uL (1.8-7.7) Lymphocytes # (Auto) 1.8 x10^3/uL (1.0-4.8) Monocytes # (Auto) 0.8 x10^3/uL (0.0-1.1) Eosinophils # (Auto) 0.2 x10^3/uL (0.0-0.7) Basophils # (Auto) 0.0 x10^3/uL (0.0-0.2) Sodium Level 142 mmol/L (136-145) Potassium Level 3.8 mmol/L (3.5-5.1) Chloride Level 107 mmol/L (98-107) Carbon Dioxide Level 26 mmol/L (21-32) Anion Gap 9 (6-14) Blood Urea Nitrogen 10 mg/dL (7-20) Creatinine 1.0 mg/dL (0.6-1.0) Estimated GFR (Cockcroft-Gault) 68.7 BUN/Creatinine Ratio 10 (6-20) Glucose Level 98 mg/dL (70-99) Calcium Level 9.5 mg/dL (8.5-10.1) Magnesium Level 1.8 mg/dL (1.8-2.4) Total Bilirubin 0.4 mg/dL (0.2-1.0) Aspartate Amino Transf (AST/SGOT) 17 U/L (15-37) Alanine Aminotransferase (ALT/SGPT) 31 U/L (14-59) Alkaline Phosphatase 110 U/L (46-116) Total Protein 7.3 g/dL (6.4-8.2) Albumin 3.0 g/dL (3.4-5.0) Albumin/Globulin Ratio 0.7 (1.0-1.7) Lactic Acid Level 0.7 mmol/L (0.4-2.0) Urine Collection Type Unknown Urine Color (Auto) Light yellow Urine Turbidity Clear Urine pH (Auto) 5.0 (<5.0-8.0) Urine Specific [place] 1.023 (1.000-1.030) Urine Protein (Auto) Negative mg/dL (Negative) Urine Glucose (Auto)(UA) Negative mg/dL (Negative) Urine Ketones (Auto) 10 mg/dL (Negative) Urine Blood (Auto) Small (Negative) Urine Nitrite Negative (Negative) Urine Bilirubin (Auto) Negative (Negative) Urine Urobilinogen (Auto) Normal mg/dL (Normal) Urine Leukocyte Esterase (Auto) Moderate (Negative) Urine RBC 6-10 /HPF (0-2) Urine WBC 11-20 /HPF (0-4) Urine Squamous Epithelial Cells Few /LPF Urine Bacteria Few /HPF (0-FEW) Urine Mucus Mod /LPF Assessment and Plan Assessmemt and Plan Problems Medical Problems: (1) Aphasia following cerebrovascular accident (CVA) Status: Acute (2) Candidiasis of breast Status: Acute (3) H/O: CVA (cerebrovascular accident) Status: Acute (4) Intertriginous dermatitis associated with moisture Status: Acute (5) 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 Medications: Current Medications Medications (Trade) Dose Ordered Sig/Charu Route PRN Reason Start Time Stop Time Status Last Admin Dose Admin Nystatin (Nystop) 1 carlos BID TP 08/20/21 13:09 08/21/21 08:43 Fluconazole (Diflucan) 200 mg 1X ONCE PO 08/20/21 13:15 08/20/21 13:16 DC 08/20/21 15:48 Ringer's Solution 1,000 ml @ 1,000 mls/hr 1X ONCE IV 08/20/21 13:30 08/20/21 14:29 DC 08/20/21 15:46 Clotrimazole (Lotrimin) 1 carlos BID TP 08/20/21 21:00 08/21/21 08:43 Docusate Sodium (Colace) 100 mg BID PO 08/20/21 21:00 08/21/21 08:42 Enoxaparin Sodium (Lovenox 40mg Syringe) 40 mg Q24H SQ 08/20/21 21:00 08/20/21 22:27 Amlodipine Besylate (Norvasc) 10 mg DAILY PO 08/21/21 09:00 08/21/21 08:42 Metoprolol Tartrate (Lopressor) 50 mg DAILY PO 08/21/21 09:00 08/21/21 08:42 Risperidone (RisperDAL) 0.25 mg QHS PO 08/20/21 21:00 08/20/21 22:24 Dipyridamole/ Aspirin (Aggrenox) 1 cap BID PO 08/20/21 21:00 08/21/21 08:42 Atorvastatin Calcium (Lipitor) 40 mg QHS PO 08/20/21 21:00 08/20/21 22:24 Justifications for Admission Other Justification CRISTINE LUCERO MD Aug 21, 2021 12:22
--- NOTE | 2021-08-21 12:31 | NUR ---
PCR covid swab sent to lab [id number]
--- NOTE | 2021-08-21 12:42 | NUR ---
SW following. Discussed with RN. 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 Pt can return upon discharge. RAMOS requested COVID PCR for return to facility. Wound care following. PT/OT ordered. RAMOS will continue to follow.
[2021-08-21] MEDS ORDERED: FLUCONAZOLE 100 MG TABLET. PO ONE (13:00)
[2021-08-21] MEDS ORDERED: cefTRIAXone IV Push 1 GM VIAL. IVP ONE (13:00)
[2021-08-21] MEDS ORDERED: VANCOMYCIN 1.5 GM in IV NORMAL SALINE 500ML BAG 500 ML IV ONE (13:30)
[2021-08-21 15:00] VITALS: BP 104/65
--- NOTE | 2021-08-21 15:34 | NUR ---
1230 lab called- 1 of 3 bottles gram possitive. Notified Dr. Dunbar. 1500 lab called- 2 of 3 bottles gram possitive cocci in clusters. Notified Dr. Dunbar.
[2021-08-21] MEDS: cefTRIAXone IV Push 2 GM VIAL. IVP SCH (18:42)
[2021-08-21] MEDS: MICAFUNGIN 100 MG in IV NORMAL SALINE 100ML 100 ML IV SCH (18:43)
--- NOTE | 2021-08-21 18:54 | CONS ---
DATE OF CONSULTATION: 08/21/2021 REFERRING PHYSICIAN: REASON FOR CONSULTATION: Bacteremia, left breast cellulitis, dermatitis, antibiotic management. 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 The patient answers a few questions. She has difficulty with words due to history of CVA affecting the right side. Her left breast was very painful. It was also under the breast. She denies any history of injury. Denies any fevers, chills, nausea, vomiting, diarrhea, abdominal pain. REVIEW OF SYSTEMS: Negative except for above in HPI. PAST MEDICAL HISTORY: CVA, depression, hyperlipidemia, hypertension, UTI, right hemiparesis, aphasia, candidiasis, hypokalemia. SOCIAL HISTORY: Nonsmoker, no alcohol, no drug use. Sister at bedside. ALLERGIES: CODEINE ALLERGY. CURRENT MEDICATIONS: One dose of vancomycin, Rocephin and fluconazole. Other medications reviewed in medication list. PHYSICAL EXAMINATION: CONSTITUTIONAL: Obese. Alert, oriented x3, nontoxic appearing. HEENT: Normocephalic, atraumatic. Anicteric. No thrush. Oral mucosa moist. NECK: Supple, no JVD. LUNGS: Clear bilaterally. No wheezing. HEART: S1, S2. No gallops or murmurs. ABDOMEN: Soft, nontender, nondistended. Bowel sounds present. EXTREMITIES: No edema, no cyanosis. BREASTS: Left breast slightly erythematous. Under the breast, there is moist superficial maceration erythematous going on the back fold, excessively tender. No gross purulence. No nipple discharge. No induration around the breast. DERMATOLOGIC: Warm, dry. No generalized rash, otherwise. NEUROLOGIC: Alert, awake, right-sided weakness, chronic, unable to move left upper and lower extremity. PSYCHIATRIC: Calm and cooperative, smiling. LABORATORY DATA: WBC 7.8, hemoglobin 13.1, hematocrit 38.8, platelets 237. Sodium 142, potassium 3.8, chloride 107, bicarbonate 26, BUN 10, creatinine 1.0, glucose 98. Lactate normal. LFTs noted. UA, small blood, WBC 11-20. MICRO: Blood culture 1/3 bottles from 2 sets is positive for GPC. ID and DENICE pending at this time. IMAGING: None. IMPRESSION: 1. GPC bacteremia. Final ID and DENICE pending. 2. Left breast cellulitis. 3. Left breast fungal dermatitis. 4. History of cerebrovascular accident. 5. Pyuria. 6. Hypertension. 7. History of cerebrovascular accident with right-sided hemiparesis. RECOMMENDATIONS: 1. Start Zyvox, ceftriaxone and micafungin. 2. Status post one dose of vancomycin today. 3. Follow up blood culture results, could be contaminant. 4. Repeat blood cultures in a.m. 5. Local care. Discussed with sister at bedside. Discussed with RN. Thank you for allowing me to participate in this patient's care. If you have any questions, do not hesitate to contact me. CHELY/BRUNO/TRACIE DR: Olive TID: [id number] MTDD
[2021-08-21 19:00] VITALS: BP 108/87
[2021-08-21] MEDS: ATORVASTATIN CALCIUM 40 MG TABLET. PO SCH (22:03)
[2021-08-21] MEDS: risperiDONE 0.25 MG TABLET. PO SCH (22:03)
[2021-08-21] MEDS: LINEZOLID 600 MG TABLET PO SCH (22:03)
[2021-08-21] MEDS: ENOXAPARIN 40 MG/0.4 ML SYRINGE. SQ SCH (22:05)
[2021-08-21 23:25] VITALS: BP 133/74
[2021-08-22 03:35] VITALS: BP 128/82
[2021-08-22 07:00] VITALS: BP 154/87
[2021-08-22] MEDS: ASPIRIN/DIPYRIDAMOLE 200/25MG CAP.ER.12H. PO SCH ×2 (08:20→22:49)
[2021-08-22] MEDS: LINEZOLID 600 MG TABLET PO SCH ×2 (08:20→22:48)
[2021-08-22] MEDS: DOCUSATE SODIUM 100 MG CAPSULE. PO SCH ×2 (08:20→22:49)
[2021-08-22] MEDS: METOPROLOL TART IMMED RELEASE 50 MG TABLET. PO SCH (08:21)
[2021-08-22] MEDS: CLOTRIMAZOLE 1% TOPICAL CREAM 14GM TUBE. TP SCH ×2 (08:21→21:00)
[2021-08-22] MEDS: NYSTATIN TOPICAL POWDER 15GM BOTTLE. TP SCH ×2 (08:21→22:51)
[2021-08-22 11:00] VITALS: BP 148/82
--- NOTE | 2021-08-22 11:24 | PDOC ---
[facility] PROGRESS NOTE Date of Service DOS: DATE: 08/22/21 TIME: 11:22 Chief Complaint Chief Complaint Tinea corporis Left breast cellulitis Gram positive blood cultures Mild malnutrition History of CVA with aphasia HTN HLD FEN - Dysphagia diet PPX - heparin FULL CODE DIspo - inpatient History of Present Illness History of Present Illness Patient is a 60-year-old female with history of CVA and residual aphasia, who presents to the ED with complaints of left breast rash. Her pain is located underneath her breast. She reports sharp, constant pain. Pain appears to be secondary to extensive tinea corporis underneath her left breast. Labs admiss ion were largely unremarkable, WBC 7.8, albumin 3.0. 08/21: Blood cultures positive for gram-positive cocci 1-3 bottles. Treating systemically and topically for fungal dermatitis in her left breast which is extensive. Not clear this is a cellulitis but given the positive blood cultures will initiate IV antibiotics and consult infectious diseases. Patient is able to nod and follow directions and say "uh-huh" otherwise she is aphasic. 08/22: Urine culture with normal dominick blood cultures positive pending final results. Still with some left breast pain. Able to indicate with her hand but not able to vocalize other than mumbling. Vitals/I&O Vitals/I&O: Vital Signs Date Time Temp Pulse Resp B/P (MAP) Pulse Ox O2 Delivery O2 Flow Rate FiO2 08/22/21 08:21 72 154/87 08/22/21 07:00 98.4 18 97 Room Air 98.4 I & O 08/21/21 08/21/21 08/22/21 15:00 23:00 07:00 Intake Total 240 ml 220 ml Balance 240 ml 220 ml Physical Exam General: Alert, Cooperative Lungs: Clear Labs Labs: Laboratory Tests Test 08/21/21 12:20 Coronavirus (COVID-19)(PCR) Not detected (NOT DETECTD) Assessment and Plan Assessmemt and Plan Problems Medical Problems: (1) Aphasia following cerebrovascular accident (CVA) Status: Acute (2) Candidiasis of breast Status: Acute (3) H/O: CVA (cerebrovascular accident) Status: Acute (4) Intertriginous dermatitis associated with moisture Status: Acute (5) 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 Medications: Current Medications Medications (Trade) Dose Ordered Sig/Charu Route PRN Reason Start Time Stop Time Status Last Admin Dose Admin Fluconazole (Diflucan) 150 mg 1X ONCE PO 08/21/21 13:00 08/21/21 13:01 DC 08/21/21 14:33 Vancomycin HCl 1.5 gm/Sodium Chloride 500 ml @ 250 mls/hr 1X ONCE IV 08/21/21 13:30 08/21/21 15:29 DC 08/21/21 14:35 Ceftriaxone Sodium (Rocephin) 1 gm 1X ONCE IVP 08/21/21 13:00 08/21/21 13:01 DC 08/21/21 14:33 Linezolid (Zyvox) 600 mg BID PO 08/21/21 21:00 08/22/21 08:20 Micafungin Sodium 100 mg/Sodium Chloride 100 ml @ 100 mls/hr Q24H IV 08/21/21 17:00 08/21/21 18:43 Ceftriaxone Sodium (Rocephin) 2 gm Q24H IVP 08/21/21 17:00 08/21/21 18:42 Justifications for Admission Other Justification CRISTINE LUCERO MD Aug 22, 2021 11:24
--- NOTE | 2021-08-22 13:55 | PDOC ---
Infectious Disease Note Subjective: Subjective Patient feels better today Less pain Denies any fever, nausea, vomiting, diarrhea, abdominal pain Discussed with RN at bedside Vital Signs: Vital Signs Vital Signs Date Time Temp Pulse Resp B/P (MAP) Pulse Ox O2 Delivery O2 Flow Rate FiO2 08/22/21 11:00 97.2 64 18 148/82 (104) 94 Room Air 97.2 Physical Exam: PHYSICAL EXAM CONSTITUTIONAL: Obese. Alert, oriented x3, nontoxic appearing. HEENT: Normocephalic, atraumatic. Anicteric. No thrush. Oral mucosa moist. NECK: Supple, no JVD. LUNGS: Clear bilaterally. No wheezing. HEART: S1, S2. No gallops or murmurs. ABDOMEN: Soft, nontender, nondistended. Bowel sounds present. EXTREMITIES: No edema, no cyanosis. BREASTS: Left breast slightly erythematous. Under the breast, there is moist superficial maceration erythematous going on the back fold, excessively tender. No gross purulence. No nipple discharge. No induration around the breast. DERMATOLOGIC: Warm, dry. No generalized rash, otherwise. NEUROLOGIC: Alert, awake, right-sided weakness, chronic, unable to move left upper and lower extremity. PSYCHIATRIC: Calm and cooperative, smiling. Medications: Inpatient Meds: Medications reviewed. Objective: Assessment: 1. GPC bacteremia,2 out of 4 bottles present on admission final ID and DENICE p ending. 2. Left breast mild cellulitis. No clinical evidence of mastitis or breast abscess on clinical exam 3. Left breast fungal dermatitis. 4. History of cerebrovascular accident. 5. Pyuria. 6. Hypertension. 7. History of cerebrovascular accident with right-sided hemiparesis. Plan: Plan of Care 1. Continue Zyvox, ceftriaxone and micafungin. 2. Status post one dose of vancomycin 3. Follow up blood culture results, could be contaminant. 4. Follow-up repeat blood cultures in a.m. 5. Local care. Discussed with RN at bedside. CAR BROWN MD Aug 22, 2021 13:55
[2021-08-22 15:00] VITALS: BP 136/57
[2021-08-22] MEDS: cefTRIAXone IV Push 2 GM VIAL. IVP SCH (17:28)
[2021-08-22] MEDS: MICAFUNGIN 100 MG in IV NORMAL SALINE 100ML 100 ML IV SCH (17:28)
[2021-08-22 19:00] VITALS: BP 128/76
[2021-08-22] MEDS: ATORVASTATIN CALCIUM 40 MG TABLET. PO SCH (22:49)
[2021-08-22] MEDS: HYDROcodone/APAP 5/325MG 1 TAB TABLET PO PRN (22:49)
[2021-08-22] MEDS: risperiDONE 0.25 MG TABLET. PO SCH (22:49)
[2021-08-22] MEDS: ENOXAPARIN 40 MG/0.4 ML SYRINGE. SQ SCH (22:50)
[2021-08-22 23:00] VITALS: BP 150/68
[2021-08-23 03:00] VITALS: BP 131/56
[2021-08-23 07:00] VITALS: BP 157/76
[2021-08-23] MEDS: ASPIRIN/DIPYRIDAMOLE 200/25MG CAP.ER.12H. PO SCH ×2 (08:45→20:24)
[2021-08-23] MEDS: DOCUSATE SODIUM 100 MG CAPSULE. PO SCH ×2 (08:45→20:24)
[2021-08-23] MEDS: LINEZOLID 600 MG TABLET PO SCH ×2 (08:45→20:24)
[2021-08-23] MEDS: NYSTATIN TOPICAL POWDER 15GM BOTTLE. TP SCH ×2 (08:46→20:25)
[2021-08-23] MEDS: METOPROLOL TART IMMED RELEASE 50 MG TABLET. PO SCH (08:46)
[2021-08-23] MEDS: CLOTRIMAZOLE 1% TOPICAL CREAM 14GM TUBE. TP SCH ×2 (08:47→20:37)
--- NOTE | 2021-08-23 09:38 | PDOC ---
[facility] PROGRESS NOTE Date of Service DOS: DATE: 08/23/21 TIME: 09:37 Chief Complaint Chief Complaint Left breast fungal cellulitis Left breast cellulitis Gram positive blood cultures - GPC bacteremia,2 out of 4 bottles present on admission final ID and DENICE pending. Mild malnutrition History of CVA with aphasia HTN HLD Pyuria. FEN - Dysphagia diet PPX - heparin FULL CODE DIspo - inpatient History of Present Illness History of Present Illness Patient is a 60-year-old female with history of CVA and residual aphasia, who presents to the ED with complaints of left breast rash. Her pain is located underneath her breast. She reports sharp, constant pain. Pain appears to be secondary to extensive tinea corporis underneath her left breast. Labs admission were largely unremarkable, WBC 7.8, albumin 3.0. 08/21: Blood cultures positive for gram-positive cocci 1-3 bottles. Treating systemically and topically for fungal dermatitis in her left breast which is extensive. Not clear this is a cellulitis but given the positive blood cultures will initiate IV antibiotics and consult infectious diseases. Patient is able to nod and follow directions and say "uh-huh" otherwise she is aphasic. 08/22: Urine culture with normal dominick blood cultures positive pending final results. Still with some left breast pain. Able to indicate with her hand but not able to vocalize other than mumbling. 08/23: Final cultures pending. On Zyvox per infectious diseases. Having some breast pain and tenderness. Vitals/I&O Vitals/I&O: Vital Signs Date Time Temp Pulse Resp B/P (MAP) Pulse Ox O2 Delivery O2 Flow Rate FiO2 08/23/21 08:46 72 157/76 08/23/21 07:00 18 93 Room Air 08/23/21 03:00 98.5 98.5 I & O 08/22/21 08/22/21 08/23/21 15:00 23:00 07:00 Intake Total 120 ml 200 ml Balance 120 ml 200 ml Physical Exam Physical Exam: CONSTITUTIONAL: Obese. Alert, oriented x3, nontoxic appearing. HEENT: Normocephalic, atraumatic. Anicteric. No thrush. Oral mucosa moist. NECK: Supple, no JVD. LUNGS: Clear bilaterally. No wheezing. HEART: S1, S2. No gallops or murmurs. ABDOMEN: Soft, nontender, nondistended. Bowel sounds present. EXTREMITIES: No edema, no cyanosis. BREASTS: Left breast slightly erythematous. Under the breast, there is moist superficial maceration erythematous going on the back fold, excessively tender. No gross purulence. No nipple discharge. No induration around the breast. DERMATOLOGIC: Warm, dry. No generalized rash, otherwise. NEUROLOGIC: Alert, awake, right-sided weakness, chronic, unable to move left upper and lower extremity. PSYCHIATRIC: Calm and cooperative, smiling. 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 Justifications for Admission Other Justification CRISTINE LUCERO MD Aug 23, 2021 09:38
[2021-08-23 11:00] VITALS: BP 144/68
[2021-08-23 15:00] VITALS: BP 149/70
--- NOTE | 2021-08-23 15:06 | PDOC ---
Infectious Disease Note Subjective: Subjective Patient feels better today Denies any fever, nausea, vomiting, diarrhea, abdominal pain Vital Signs: Vital Signs Vital Signs Date Time Temp Pulse Resp B/P (MAP) Pulse Ox O2 Delivery O2 Flow Rate FiO2 08/23/21 11:00 98.2 69 18 144/68 (93) 97 Room Air 98.2 Physical Exam: PHYSICAL EXAM CONSTITUTIONAL: Obese. Alert, oriented x3, nontoxic appearing. HEENT: Normocephalic, atraumatic. Anicteric. No thrush. Oral mucosa moist. NECK: Supple, no JVD. LUNGS: Clear bilaterally. No wheezing. HEART: S1, S2. No gallops or murmurs. ABDOMEN: Soft, nontender, nondistended. Bowel sounds present. EXTREMITIES: No edema, no cyanosis. BREASTS: Left breast slightly erythematous. Under the breast, there is moist superficial maceration erythematous going on the back fold, improving No gross purulence. DERMATOLOGIC: Warm, dry. No generalized rash, otherwise. NEUROLOGIC: Alert, awake, right-sided weakness, chronic, unable to move left upper and lower extremity. PSYCHIATRIC: Calm and cooperative, smiling. Medications: Inpatient Meds: Medications reviewed. Objective: Assessment: 1. GPC bacteremia,2 out of 3 bottles present on admission, staph epidermidis. Likely contaminant 2. Left breast mild cellulitis. No clinical evidence of mastitis or breast abscess on clinical exam 3. Left breast fungal dermatitis. 4. History of cerebrovascular accident. 5. Pyuria. 6. Hypertension. 7. History of cerebrovascular accident with right-sided hemiparesis. Plan: Plan of Care 1. Continue Zyvox, ceftriaxone and micafungin. 2. Status post one dose of vancomycin 3. Follow-up repeat blood cultures from August 20, 2021 which are negative so far 4. Local care. Discussed with RN at bedside. CAR BROWN MD Aug 23, 2021 15:06
[2021-08-23] MEDS: cefTRIAXone IV Push 2 GM VIAL. IVP SCH (17:13)
[2021-08-23] MEDS: MICAFUNGIN 100 MG in IV NORMAL SALINE 100ML 100 ML IV SCH (17:13)
[2021-08-23 19:00] VITALS: BP 168/54
[2021-08-23] MEDS: risperiDONE 0.25 MG TABLET. PO SCH (20:24)
[2021-08-23] MEDS: ATORVASTATIN CALCIUM 40 MG TABLET. PO SCH (20:24)
[2021-08-23] MEDS: ENOXAPARIN 40 MG/0.4 ML SYRINGE. SQ SCH (20:25)
[2021-08-23] MEDS: LACTOBACILLUS RHAMNOSUS GG 1 CAPSULE. PO SCH (20:34)
[2021-08-23 23:08] VITALS: BP 151/60
[2021-08-24 03:00] VITALS: BP 169/74
[2021-08-24 07:30] VITALS: BP 145/54
[2021-08-24] MEDS: LINEZOLID 600 MG TABLET PO SCH (08:15)
[2021-08-24] MEDS: DOCUSATE SODIUM 100 MG CAPSULE. PO SCH (08:15)
[2021-08-24] MEDS: LACTOBACILLUS RHAMNOSUS GG 1 CAPSULE. PO SCH (08:15)
[2021-08-24] MEDS: ASPIRIN/DIPYRIDAMOLE 200/25MG CAP.ER.12H. PO SCH (08:15)
[2021-08-24] MEDS: METOPROLOL TART IMMED RELEASE 50 MG TABLET. PO SCH (08:16)
[2021-08-24] MEDS: HYDROcodone/APAP 5/325MG 1 TAB TABLET PO PRN (08:18)
[2021-08-24] MEDS: CLOTRIMAZOLE 1% TOPICAL CREAM 14GM TUBE. TP SCH (08:19)
[2021-08-24] MEDS: NYSTATIN TOPICAL POWDER 15GM BOTTLE. TP SCH (08:19)
[2021-08-24] MEDS ORDERED: NYST15PO2 TP (10:20)
[2021-08-24] MEDS ORDERED: CEFD300C PO (10:20)
[2021-08-24] MEDS ORDERED: FLUC100T6 PO (10:20)
--- NOTE | 2021-08-24 10:22 | SNU/HH DC ---
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 Status: Acute CONDITION ON DISCHARGE: Stable CODE STATUS: Code Status: Full POST DISCHARGE ORDERS: ACTIVITY ORDERS: No restrictions WEIGHT BEARING STATUS: No restrictions DIET AFTER DISCHARGE: Regular WOUND/INCISION CARE: Keep wound elevated CHECKS AFTER DISCHARGE: CHECKS AFTER DISCHARGE: Check blood press - daily TREATMENT/EQUIPMENT ORDERS: Physical Therapy For: Evalulation/Treatment Occupational Therapy For: Evaluation/Treatment DISCHARGE MEDICATIONS: Home Meds Active Scripts Fluconazole (FLUCONAZOLE) 100 Mg Tablet, 1 TAB PO DAILY for Fungal dermatitis for 7 Days, #7 TAB Prov:CRISTINE LUCERO MD 08/24/21 Cefdinir (CEFDINIR) 300 Mg Capsule, 1 CAP PO BID for Cellulitis for 7 Days, #14 CAP Prov:CRISTINE LUCERO MD 08/24/21 Nystatin (NYAMYC) 15 Gm Powder, 1 MIKAYLA TP BID for Fungal dermatitis for 14 Days, #28 MISC Prov:CRISTINE LUCERO MD 08/24/21 Reported Medications Risperidone (RISPERDAL) 0.25 Mg Tablet, 1 TAB PO QHS, #30 TAB 08/18/16 Potassium Chloride (K-Tab ER) 20 Meq Tablet.er, 20 MEQ PO HS, TAB.SR 08/18/16 Calcium Carbonate (OYSTER SHELL CALCIUM) 500 Mg Tablet, 500 MG PO TID 08/18/16 Nystatin (NYSTATIN) 1 Each Powder.ea., 1 EACH PO PRN for ITCHING 08/18/16 Magnesium Hydroxide (MILK OF MAGNESIA) 400 Mg/5 Ml Oral.susp, 400 MG PO PRN for CONSTIPATION 08/18/16 Metoprolol Tartrate (METOPROLOL TARTRATE) 50 Mg Tablet, 1 TAB PO DAILY, #60 TAB 5 Refills 08/18/16 Cholecalciferol (Vitamin D3) (VITAMIN D) 2,000 Unit Capsule, 1 CAP PO DAILY, #30 CAP 3 Refills 08/18/16 Atorvastatin Calcium (LIPITOR) 40 Mg Tablet, 1 TAB PO QHS, #90 TAB 1 Refill 08/18/16 Amlodipine Besylate (AMLODIPINE BESYLATE) 10 Mg Tablet, 10 MG PO DAILY, TAB 08/18/16 Aspirin/Dipyridamole (AGGRENOX 25 MG-200 MG CAPSULE) 1 Each Cpmp.12hr, 1 CAP PO BID, #60 CAP 5 Refills 08/18/16 Acetaminophen (TYLENOL) 325 Mg Tablet, 650 MG PO PRN Q6HRS PRN for PAIN 08/18/16 CRISTINE LUCERO MD Aug 24, 2021 10:22
[2021-08-24 11:00] VITALS: BP 139/57
--- NOTE | 2021-08-24 11:35 | PDOC ---
[facility] PROGRESS NOTE Date of Service DOS: DATE: 08/24/21 TIME: 11:34 Chief Complaint Chief Complaint Left breast fungal cellulitis Left breast cellulitis Gram positive blood cultures - GPC bacteremia,2 out of 4 bottles present on admission final ID and DENICE pending. Mild malnutrition History of CVA with aphasia HTN HLD Pyuria. FEN - Dysphagia diet PPX - heparin FULL CODE DIspo - inpatient History of Present Illness History of Present Illness Patient is a 60-year-old female with history of CVA and residual aphasia, who presents to the ED with complaints of left breast rash. Her pain is located underneath her breast. She reports sharp, constant pain. Pain appears to be secondary to extensive tinea corporis underneath her left breast. Labs admission were largely unremarkable, WBC 7.8, albumin 3.0. 08/21: Blood cultures positive for gram-positive cocci 1-3 bottles. Treating systemically and topically for fungal dermatitis in her left breast which is extensive. Not clear this is a cellulitis but given the positive blood cultures will initiate IV antibiotics and consult infectious diseases. Patient is able to nod and follow directions and say "uh-huh" otherwise she is aphasic. 08/22: Urine culture with normal dominick blood cultures positive pending final results. Still with some left breast pain. Able to indicate with her hand but not able to vocalize other than mumbling. 08/23: Final cultures pending. On Zyvox per infectious diseases. Having some breast pain and tenderness. 08/24: Blood cultures with staph epidermidis. Pain is well controlled. Plan is for 7 days of cefdinir and Diflucan and check LFTs in 1 week. Local wound care try to elevate breast. Vitals/I&O Vitals/I&O: Vital Signs Date Time Temp Pulse Resp B/P (MAP) Pulse Ox O2 Delivery O2 Flow Rate FiO2 08/24/21 08:48 Room Air 08/24/21 08:16 63 145/54 08/24/21 07:30 98.1 18 96 98.1 I & O 08/23/21 08/23/21 08/24/21 15:00 23:00 07:00 Intake Total 240 ml 100 ml Output Total 1 ml Balance 240 ml 100 ml -1 ml Physical Exam Physical Exam: CONSTITUTIONAL: Obese. Alert, oriented x3, nontoxic appearing. HEENT: Normocephalic, atraumatic. Anicteric. No thrush. Oral mucosa moist. NECK: Supple, no JVD. LUNGS: Clear bilaterally. No wheezing. HEART: S1, S2. No gallops or murmurs. ABDOMEN: Soft, nontender, nondistended. Bowel sounds present. EXTREMITIES: No edema, no cyanosis. BREASTS: Left breast slightly erythematous. Under the breast, there is moist superficial maceration erythematous going on the back fold, improving No gross purulence. DERMATOLOGIC: Warm, dry. No generalized rash, otherwise. NEUROLOGIC: Alert, awake, right-sided weakness, chronic, unable to move left upper and lower extremity. PSYCHIATRIC: Calm and cooperative, smiling. 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 Medications: Current Medications Medications (Trade) Dose Ordered Sig/Charu Route PRN Reason Start Time Stop Time Status Last Admin Dose Admin Lactobacillus Rhamnosus (Culturelle) 1 cap BID PO 08/23/21 21:00 08/24/21 08:15 Justifications for Admission Other Justification CRISTINE LUCERO MD Aug 24, 2021 11:35
--- NOTE | 2021-08-24 11:37 | PDOC3 ---
Discharge Summary Visit Information Date of Admission: Aug 20, 2021 Date of Discharge: Aug 24, 2021 Admitting Diagnosis: Left breast cellulitis Final Diagnosis Problems Medical Problems: (1) Aphasia following cerebrovascular accident (CVA) Status: Acute (2) Candidiasis of breast Status: Acute (3) H/O: CVA (cerebrovascular accident) Status: Acute (4) Intertriginous dermatitis associated with moisture Status: Acute (5) Psychomotor deficit following unspecified cerebrovascular disease Status: Acute Brief Hospital Course Allergies Allergies Coded Allergies Type Severity Reaction Last Updated Verified codeine Allergy Intermediate 08/17/16 Yes Vital Signs Vital Signs Date Time Temp Pulse Resp B/P (MAP) Pulse Ox O2 Delivery O2 Flow Rate FiO2 08/24/21 08:48 Room Air 08/24/21 08:16 63 145/54 08/24/21 07:30 98.1 18 96 98.1 Brief Hospital Course Patient is a 60-year-old female with history of CVA and residual aphasia, who presents to the ED with complaints of left breast rash. Her pain is located underneath her breast. She reports sharp, constant pain. Pain appears to be secondary to extensive tinea corporis underneath her left breast. Labs admission were largely unremarkable, WBC 7.8, albumin 3.0. 08/21: Blood cultures positive for gram-positive cocci 1-3 bottles. Treating systemically and topically for fungal dermatitis in her left breast which is extensive. Not clear this is a cellulitis but given the positive blood cultures will initiate IV antibiotics and consult infectious diseases. Patient is able to nod and follow directions and say "uh-huh" otherwise she is aphasic. 08/22: Urine culture with normal dominick blood cultures positive pending final results. Still with some left breast pain. Able to indicate with her hand but not able to vocalize other than mumbling. 08/23: Final cultures pending. On Zyvox per infectious diseases. Having some breast pain and tenderness. 08/24: Blood cultures with staph epidermidis. Pain is well controlled. Plan is for 7 days of cefdinir and Diflucan and check LFTs in 1 week. Local wound care try to elevate breast. Consults: ID Problem list: Left breast fungal cellulitis -Diflucan 7 days on DC Left breast cellulitis -cefdinir 7 days on DC Gram positive blood cultures - GPC bacteremia,2 out of 4 bottles present on admission final ID and DENICE staph epidermidis likely contaminant Mild malnutrition History of CVA with aphasia HTN HLD Pyuria. Greater than 30 minutes spent on d/c to SNF Discharge Information Condition at Discharge: Improved Follow Up: Weeks (1) Disposition/Orders: D/C to Another Facility ([place]) Scheduled Amlodipine Besylate (Amlodipine Besylate) 10 Mg Tablet, 10 MG PO DAILY, (Re ported) Entered as Reported by: Jeovany Veliz on 08/18/16408 Last Action: Continued on 08/20/211811 by ISIAH CANADA MD Aspirin/Dipyridamole (Aggrenox 25 Mg-200 Mg Capsule) 1 Each Cpmp.12hr, 1 CAP PO BID, #60 Ref 5 (Reported) Entered as Reported by: Jeovany Veliz on 08/18/16408 Last Action: Continued on 08/20/211811 by ISIAH CANADA MD Atorvastatin Calcium (Lipitor) 40 Mg Tablet, 1 TAB PO QHS, #90 Ref 1 (Reported) Entered as Reported by: Jeovany Veliz on 08/18/16408 Last Action: Continued on 08/20/211811 by ISIAH CANADA MD Calcium Carbonate (Oyster Shell Calcium) 500 Mg Tablet, 500 MG PO TID, (Reported) Entered as Reported by: Jeovany Veliz on 08/18/16408 Cefdinir (Cefdinir) 300 Mg Capsule, 1 CAP PO BID for Cellulitis for 7 Days, #14 Prescribed by: CRISTINE LUCERO MD on 08/24/21 1020 Cholecalciferol (Vitamin D3) (Vitamin D) 2,000 Unit Capsule, 1 CAP PO DAILY, #30 Ref 3 (Reported) Entered as Reported by: Jeovany Veliz on 08/18/16408 Fluconazole (Fluconazole) 100 Mg Tablet, 1 TAB PO DAILY for Fungal dermatitis for 7 Days, #7 Prescribed by: CRISTINE LUCERO MD on 08/24/21 1020 Metoprolol Tartrate (Metoprolol Tartrate) 50 Mg Tablet, 1 TAB PO DAILY, #60 Ref 5 (Reported) Entered as Reported by: Jeovany Veliz on 08/18/16408 Last Action: Continued on 08/20/211811 by ISIAH CANADA MD Nystatin (Nyamyc) 15 Gm Powder, 1 MIKAYLA TP BID for Fungal dermatitis for 14 Days, #28 Prescribed by: CRISTINE LUCERO MD on 08/24/21 1020 Potassium Chloride (K-Tab ER) 20 Meq Tablet.er, 20 MEQ PO HS, (Reported) Entered as Reported by: Jeovany Veliz on 08/18/16408 Risperidone (Risperdal) 0.25 Mg Tablet, 1 TAB PO QHS, #30 (Reported) Entered as Reported by: Jeovany Veliz on 08/18/16408 Last Action: Continued on 08/20/211811 by ISIAH CANADA MD Scheduled PRN Acetaminophen (Tylenol) 325 Mg Tablet, 650 MG PO PRN Q6HRS PRN for PAIN, (Reported) Entered as Reported by: Jeovany Veliz on 08/18/16408 Magnesium Hydroxide (Milk Of Magnesia) 400 Mg/5 Ml Oral.susp, 400 MG PO for CONSTIPATION, (Reported) Entered as Reported by: Jeovany Veliz on 08/18/16408 Nystatin (Nystatin) 1 Each Powder.ea., 1 EACH PO for ITCHING, (Reported) Entered as Reported by: Jeovany Veliz on 08/18/16408 Justicifation of Admission Dx: Justifications for Admission: Justification of Admission Dx: Yes CRISTINE LUCERO MD Aug 24, 2021 11:37
[2021-08-24 15:00] VITALS: BP 138/55
--- NOTE | 2021-08-24 16:25 | PDOC ---
Infectious Disease Note Subjective Subjective Patient feels better today Denies any fever, nausea, vomiting, diarrhea, abdominal pain ROS ROS as above Vital Sign Vital Signs Vital Signs Date Time Temp Pulse Resp B/P (MAP) Pulse Ox O2 Delivery O2 Flow Rate FiO2 08/24/21 15:00 97.9 59 18 138/55 (82) 96 Room Air 97.9 Physical Exam PHYSICAL EXAM CONSTITUTIONAL: Obese. Alert, oriented x3, nontoxic appearing. HEENT: Normocephalic, atraumatic. Anicteric. No thrush. Oral mucosa moist. NECK: Supple, no JVD. LUNGS: Clear bilaterally. No wheezing. HEART: S1, S2. No gallops or murmurs. ABDOMEN: Soft, nontender, nondistended. Bowel sounds present. EXTREMITIES: No edema, no cyanosis. BREASTS: Left breast slightly erythematous. Under the breast, there is moist superficial maceration erythematous going on the back fold, improving No gross purulence. DERMATOLOGIC: Warm, dry. No generalized rash, otherwise. NEUROLOGIC: Alert, awake, right-sided weakness, chronic, unable to move left upper and lower extremity. PSYCHIATRIC: Calm and cooperative, smiling. Labs Micro Microbiology 08/20/21 Urine Culture - Final, Complete 08/20/21 Blood Culture - Preliminary, Resulted NO GROWTH AFTER 3 DAYS Objective Assessment 1. GPC bacteremia,2 out of 3 bottles present on admission, staph epidermidis. Likely contaminant 2. Left breast mild cellulitis. No clinical evidence of mastitis or breast abscess on clinical exam 3. Left breast fungal dermatitis. 4. History of cerebrovascular accident. 5. Pyuria. 6. Hypertension. 7. History of cerebrovascular accident with right-sided hemiparesis. Plan Plan of Care 1. ok to d/c on po cefdinir and diflucan 2. Status post one dose of vancomycin 3. Follow-up repeat blood cultures from August 20, 2021 which are negative so far 4. Local care. Discussed with RN at bedside. DORENE BROWN MD Aug 24, 2021 16:25
[2021-08-24] MEDS: cefTRIAXone IV Push 2 GM VIAL. IVP SCH (17:00)
[2021-08-24] MEDS: MICAFUNGIN 100 MG in IV NORMAL SALINE 100ML 100 ML IV SCH (17:00)
--- NOTE | 2021-08-24 17:46 | NUR ---
Called and gave report to [facility] at [place].
== END 2021-08-24 19:13 | DRG 868 ==
LOC: ER 12:27 → ED HOLD 18:06 → 4 NORTH 20:33
PROVIDERS: ADMIT Family Medicine; ATTEND Family Medicine
DX: B37.89 Other sites of candidiasis (principal); E44.1 Mild protein-calorie malnutrition; R78.81 Bacteremia; I69.351 Hemiplegia and hemiparesis following cerebral infarction affecting right dominant side; Z68.41 Body mass index [BMI] 40.0-44.9, adult; B36.9 Superficial mycosis, unspecified; N61.0 Mastitis without abscess; I69.320 Aphasia following cerebral infarction; B35.4 Tinea corporis; E78.00 Pure hypercholesterolemia, unspecified; E78.5 Hyperlipidemia, unspecified; I10 Essential (primary) hypertension; L30.4 Erythema intertrigo; F32.A Depression, unspecified; Z88.8 Allergy status to other drugs, medicaments and biological substances; I69.313 Psychomotor deficit following cerebral infarction; R82.81 Pyuria
CPT/HCPCS: 36415; 80053; 81001; 83605; 83735; 85025; 87040; 87077; 87086; 87186; 96360; J0696; J1650; J2248; J3370; J7040; J7120; U0003; 97110-GP; 97530-GP; 99285-25; G0378